=== PATIENT | female | born 2000 | race Caucasian/White ===

== ENCOUNTER 2022-06-24 12:36 | Emergency (ER) | payer BC, SELFPAY ==
[2022-06-24 13:02] VITALS: BP 146/93; PULSE 73; RESP 18; TEMP 36.4; O2SAT 100
[2022-06-24 13:07] LABS: Appearance Urine Clear (Clear); Bilirubin Urine Negative (Negative); Blood Urine 1+ (Negative); Glucose Urine UA Negative (Negative); Ketones Urine Negative (Negative); Leukocyte Esterase Ur Trace LEU/UL (Negative); Nitrate Urine Negative (Negative); Protein Urine Negative (Negative); Specific Grav Ur 1.015 (1.010-1.020); Urobilinogen Urine 0.2 mg/dL (0.2-1.0); pH Urine 6.5 (5.0-8.0)
[2022-06-24 13:11] LABS: Add Urine Microscopic? YES; Bacteria Urine Trace /hpf; Color Urine Light Yellow (Yellow); RBC Urine 0-2 /hpf (0-2); Squamous Epithelial Cell Urine Few /hpf (Few); WBC Urine 0-3 /hpf (0-3)
--- NOTE | 2022-06-24 13:36 | ED.FEMALEGU ---
HPI - Female Genitourinary General Chief complaint: Vaginal Bleeding Stated complaint: 6 weeks bloody discharge Source: patient Mode of arrival: ambulatory Limitations: no limitations History of Present Illness HPI Narrative: this is a 21-year-old female that presents after she did a home test and determined that she was presents today with some mild spotting with no crampy abdominal pain no dysuria no fever chills no flank pain no nausea or vomiting. Onset (ago): hour(s) Severity: mild Related Data Home Medications Medication Instructions Recorded Confirmed No Home Medications 06/24/22 06/24/22 Allergies Allergy/AdvReac Type Severity Reaction Status Date / Time No Known Allergies Allergy Verified 06/24/22 13:12 Review of Systems Review of Systems: All systems reviewed & are unremarkable except as noted in HPI and below PMFSH Past Medical History Medical History Patient denies medical problems Exam Const: General: healthy appearing and no acute distress Nutritional Appearance: well nourished Orientation/consciousness: patient oriented x3 Limitations: no limitations HENMT: Head: normal to inspection Face/Nose/Sinus: Normal external nose present Face and sinus: normal facial exam Eyes: Conjunctivae: conjunctivae normal Pupils: Equal, round and reactive pupils present EOM: EOMs intact bilaterally Neck: Neck: normal visual inspection Chest: Chest palpation & inspection: normal inspection of the chest Resp: Effort & Inspection: normal respiratory effort Auscultation: clear to auscultation bilaterally Cardio: Rate: regular rate Rhythm: regular rhythm GI: GI Palp: Yes Soft to palpation Auscultation: normal bowel sounds : General: Yes bladder normal to palpation Urinary Catheter: Urinary Catheter: patent and draining Back/Spine/Pelvis: Back: no CVA tenderness Skin: General skin exam: normal color Rashes: no rashes Wounds: no wounds Neuro: General: patient oriented x3 and moves all extremities Extrem: General: normal to inspection Psych: Appearance: grossly normal and well kempt Course Course Emergency Course: reviewed urinalysis which was negative, her beta HCG was 502 which puts her about 5 to 6 weeks , 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 Vital Signs Vital signs: Vital Signs Temperature 36.4 C 06/24/22 13:02 Pulse Rate 73 06/24/22 13:02 Respiratory Rate 18 06/24/22 13:02 Blood Pressure 146/93 H 06/24/22 13:02 Pulse Oximetry 100 06/24/22 13:02 Oxygen Delivery Room Air 06/24/22 13:02 Temperature 36.4 C 06/24/22 13:02 Pulse Rate 73 06/24/22 13:02 Respiratory Rate 18 06/24/22 13:02 Blood Pressure 146/93 H 06/24/22 13:02 Pulse Oximetry 100 06/24/22 13:02 Oxygen Delivery Room Air 06/24/22 13:02 MDM - Female Genitourinary Lab Data Labs: Lab Results 06/24/22 06/24/22 Range/Units 13:01 13:03 Beta HCG, Quant 502.00 H (0-6) mIU/mL Urine Color Light yellow (Yellow) Urine Appearance Clear (Clear) Urine pH 6.5 (5.0-8.0) Ur Specific [place] 1.015 (1.010-1.020) Urine Protein Negative (Negative) Urine Glucose (UA) Negative (Negative) Urine Ketones Negative (Negative) Ur Blood (Man) 1+ H (Negative) Urine Nitrate Negative (Negative) Urine Bilirubin Negative (Negative) Urine Urobilinogen 0.2 (0.2-1.0) mg/dL Leukocyte Esterase Rfl Trace (Negative) HUSSEIN/UL Urine RBC 0-2 (0-2) /hpf Urine WBC 0-3 (0-3) /hpf Ur Squamous Epith Cells Few (Few) /hpf Urine Bacteria Trace (None) /hpf Critical Care Time Critical Care Time Critical Care Time: No Discharge Plan Discharge Clinical Impression: Currently Qualifiers: Weeks
[2022-06-24 13:48] VITALS: BP 121/65; PULSE 69; RESP 20; TEMP 37; O2SAT 100
--- NOTE | 2022-06-24 16:31 | PC.NURSE ---
On 06/24/22, the student, [christy hickman ], provided care and completed [facility] documentation on this patient. I have reviewed the student's documentation and agree with the findings.
== END 2022-06-24 13:51 | disposition home or self-care (01) ==
PROVIDERS: Emergency Provider Emergency Medicine
DX: O46.91 Antepartum hemorrhage, unspecified, first trimester (principal); Z3A.01 Less than 8 weeks gestation of pregnancy
CPT/HCPCS: 36415; 81001; 84702; 99283

== ENCOUNTER 2024-03-07 11:14 | Outpatient (CLI) | payer BC, SELFPAY ==
--- NOTE | ~2024-03-07 | US_ITS ---
US pelvic complete Ordering provider: Za Jacob CNM History: . Irregular menstrual cycle, pelvic pain . Comparison: None. Technique: Transabdominal and endovaginal ultrasound of the pelvis (Doppler ultrasound interrogation techniques used as needed for this exam.) FINDINGS: CERVIX: Normal. UTERUS: Measures 8.3x 3.6x 4.2 cm in length which is within normal limits and is anteverted. No myom etrial masses. ENDOMETRIUM: Normal in thickness measuring 6 mm. (Note: the premenopausal endometrium may measure up to 16 mm when in the secretory phase.) No endometrial masses, cysts or fluid. CUL DE SAC: No free fluid. RIGHT OVARY: Normal in size measuring 3x 2.2x 3 centimeters. Normal echotexture. Doppler vascular camilo w present. Follicles are seen. LEFT OVARY: Normal in size measuring 3.5x 2.2x 3.2 centimeters. Normal echotexture. Doppler vascular flow present. ADNEXA: Normal. No mass. IMPRESSION: normal pelvic ultrasound. Reviewed, dictated and finalized at location A. IMPRESSION: normal pelvic ultrasound.
== END 2024-03-07 11:15 ==
LOC: MICIMG 11:16
PROVIDERS: PCP Advanced Practice Midwife; Visit Provider Advanced Practice Midwife
DX: R10.2 Pelvic and perineal pain (principal); N92.6 Irregular menstruation, unspecified
CPT/HCPCS: 76856

== ENCOUNTER 2024-10-17 14:32 | Outpatient (CLI) | payer BC, SELFPAY ==
--- NOTE | ~2024-10-17 | US_ITS ---
US transvaginal Ordering provider: Kanwal Aguillon, PHAM History: . Pelvic pain . Comparison: None. Technique: endovaginal ultrasound of the pelvis (Doppler ultrasound interrogation techniques used as needed for this exam.) FINDINGS: CERVIX: Normal. UTERUS: Measures 8x 4x 4.9 cm in length which is within normal limits and is anteverted. No myometri al masses. ENDOMETRIUM: Normal in thickness measuring 10 mm. No endometrial masses, cysts or fluid. CUL DE SAC: No free fluid. RIGHT OVARY: Normal in size measuring 3.9x 5.1x 4.2 cm. Normal echotexture. Doppler vascular flow pre sent. Complex cyst is seen in the right ovary measuring 3.4x 3.5x 4 cm. LEFT OVARY: Normal in size measuring 2.4x 3.4x 2.5 cm. Normal echotexture. Doppler vascular flow pres ent. ADNEXA: Normal. No mass. IMPRESSION: Right ovarian complex cyst which may be hemorrhagic. Slightly thickened endometrium. Correlation with menstrual stage is advised. Follow-up advised. Otherwise, normal pelvic ultrasound. Reviewed, dictated and finalized at location A. [employer] IMPRESSION: Right ovarian complex cyst which may be hemorrhagic. Slightly thickened endomet rium. Correlation with menstrual stage is advised. Follow-up advised. Otherwise , normal pelvic ultrasound.
== END 2024-10-17 14:33 | disposition home or self-care (01) ==
LOC: MICIMG 14:33
PROVIDERS: PCP Nurse Practitioner Women's Health; Visit Provider Nurse Practitioner Women's Health
DX: N91.2 Amenorrhea, unspecified (principal); N92.6 Irregular menstruation, unspecified; R10.2 Pelvic and perineal pain; N83.201 Unspecified ovarian cyst, right side
CPT/HCPCS: 76830

== ENCOUNTER 2024-10-29 13:50 | Emergency (ER) | payer BC, SELFPAY ==
[2024-10-29 13:52] VITALS: BP 154/76; PULSE 91; RESP 16; TEMP 36.6; O2SAT 100
--- OUTSIDE RECORDS SUMMARY | 2024-10-29 15:25 | XMS_ITS | Clinical Summary ---
Author Organization [facility] Address [address] [place] [address] Phone Care Team Providers Care Workers Compensation Legal Secretary Name Role Phone Stanley Heck MD Unavailable Juan Agarwal MD Primary Care Provider [phone] Zain Witt PAC Unavailable [phone] Juan Manuel Gongora MD Unavailable [phone] Allergies Active Allergy Reactions Criticality Noted Date Comments Wound Dressing Adhesive Other (see Comments) High Medications Acetaminophen (TYLENOL EXTRA STRENGTH PO) Take 1,000 mg by mouth every 6 hours as needed. Active traMADol (ULTRAM) 50 MG TabletIndicatio ns:Chronic joint pain Take 1 Tablet by mouth 2 times daily as needed for Mild or more severe pain. 60 Tablet 3 Active sulfaSALAzine (AZULFIDINE) 500 MG Tablet Delayed Response TAKE 1 TO 2 TABLETS BY MOUTH TWICE DAILY 3 Active omeprazole (PriLOSEC) 40 MG CAPSULE DELAYED RELEASE 3 Active albuterol 108 (90 Base) MCG/ACT Aerosol Solution inhale 2 puffs by mouth every 4 hours as needed for shortness of breath Active cyclobenzaprine (FLEXERIL) 5 MG Tablet 4 Active Multivitamin-Mi nerals Tablet Take 1 Tablet by mouth daily. Active Humira, 2 Pen, 40 MG/0.4ML Auto-injector Kit 4 Active ondansetron (ZOFRAN-ODT) 4 MG TABLET DISPERSIBLE DISSOLVE 1 TABLET ON THE TONGUE EVERY 8 HOURS NEEDED FOR NAUSEA 10 Tablet 4 Active fluticasone (FLONASE) 50 MCG/ACT SuspensionIndic ations:Allergic Rhinitis,Nasal Congestion 1-2 Sprays by Nasal route daily. Use in each nostril as directed. Indications: Allergic Rhinitis, Stuffy Nose 1 mL 2 4 Active topiramate (TOPAMAX) 25 MG Tablet Take 1 Tablet by mouth 2 times daily. 180 Tablet 3 5 Active SUMAtriptan (IMITREX) 50 MG Tablet Take 1 Tablet by mouth once as needed for Migraine. Use as directed. May repeat dose in 2 hours if headache recurs. 9 Tablet 3 5 Active escitalopram (LEXAPRO) 10 MG TabletIndicatio ns:Depression, unspecified depression type Take 1 Tablet by mouth daily. 30 Tablet 1 5 Active Cyanocobalamin (B-12) 500 MCG TabletIndicatio ns:B12 deficiency Take 1 Tablet by mouth daily for 90 days. 90 Tablet 3 5 01/26/20 25 Active ergocalciferol (VITAMIN D) 48098 UNIT CapsuleIndicati ons:Vitamin D deficiency Take 1 Capsule by mouth once a week for 12 doses. 12 Capsule 5 01/14/20 25 Active traZODone (DESYREL) 50 MG Tablet 5 10/28/19 25 Discontinu ed(Therapy completed) Active Problems Problem Noted Date Diagnosed Date B12 deficiency 10/27/2024 Depression 10/27/2024 Insomnia 10/27/2024 Left arm pain 07/28/2024 Left elbow pain 07/28/2024 Ankylosing spondylitis of thoracic region 2023 Vitamin D deficiency 04/16/2023 Chronic joint pain 03/19/2023 History of hypothyroidism 03/19/2023 Tick bite of left lower leg 03/19/2023 Attention deficit hyperactiv ity disorder (ADHD), combined type 07/05/2016 Generalized anxiety disorder 07/05/2016 Oppositional defiant disorder 07/05/2016 Major depressive disorder, r ecurrent severe without psychotic features 06/12/2016 Encounters Date Type Department Care Team Description 10/27/2024 10:30 AM CDT Lab [facility] [address] [address] [place] [address] LabMaris Lab/Ancillary Discharge Disposition: Discharged to home or Selfcare 10/27/2024 10:00 AM CDT Office Visit [facility] [address] [facility] [place] [address] Juan Agarwal MD Depression, unspecified depression type (Primary Dx); Vitamin D deficiency; B12 deficiency; Insomnia, unspecified type Discharge Disposition: Discharged to home or Selfcare 10/27/2024 Travel 10/15/2024 Travel 10/13/2024 Transcribe Orders [facility] Services [address] [place] [address] Virgen Gusman MD Irregular menstrual cycle (Primary Dx) 10/06/2024 Travel 09/27/2024 9:41 AM SOLAR ENERGY ENGINEER - 09/27/2024 11:59 PM SOLAR ENERGY ENGINEER Hospital Encounter [facility] [address] [facility] [place] [address] Elvira Charles, PHAM, INVESTMENT FUND MANAGER Discharge Disposition: Discharged to home or Selfcare 09/27/2024 Travel 09/24/2024 1:30 PM SOLAR ENERGY ENGINEER Office Visit [facility] [address] [place] [address] Elvira Charles APRN, CRISTHIAN Neck pain (Primary Dx); Frequent headaches Discharge Disposition: Discharged to home or Selfcare 09/23/2024 10:20 AM SOLAR ENERGY ENGINEER Clinical Support [facility] [address] [place] [address] [facility] Maris, Primary Nurse Clinic Sore throat (Primary Dx) Discharge Disposition: Discharged to home or Selfcare 09/22/2024 Travel 09/19/2024 Results Follow-Up [facility] [address] [place] [address] Melvin Elvira Triston, PHAM, INVESTMENT FUND MANAGER 09/16/2024 9:00 AM SOLAR ENERGY ENGINEER [facility] [place] [facility] [place] [address] Melvin Elvira Triston, FREELANCE INTERPRETER/TRANSLATOR, INVESTMENT FUND MANAGER Juan Manuel Gongora MD Chronic migraine w/o aura w/o status migrainosus, not intractable (Primary Dx); Ankylosing spondylitis of thoracolumbar region (HCC) Discharge Disposition: Discharged to home or Selfcare 09/16/2024 8:20 AM SOLAR ENERGY ENGINEER Lab [facility] [address] [address] Lab Maris Lab/Ancillary Frequent headaches Discharge Disposition: Discharged to home or Selfcare 09/15/2024 11:45 AM SOLAR ENERGY ENGINEER - 09/15/2024 11:59 PM SOLAR ENERGY ENGINEER [facility] [address] [place] [address] Melvin, November Triston, FREELANCE INTERPRETER/TRANSLATOR, INVESTMENT FUND MANAGER Discharge Disposition: Discharged to home or Selfcare 09/15/2024 Travel 09/10/2024 2:15 PM SOLAR ENERGY ENGINEER Office Visit [facility] [place] [address] Elvira Charles, FREELANCE INTERPRETER/TRANSLATOR, INVESTMENT FUND MANAGER Frequent headaches (Primary Dx) Discharge Disposition: Discharged to home or Selfcare 09/10/2024 Travel 09/03/2024 10:40 AM SOLAR ENERGY ENGINEER Immunization [facility] [place] [address] [place] [address] [facility] Maris, [facility] Nurse Clinic Chronic joint pain (Primary Dx) Discharge Disposition: Discharged to home or Selfcare 09/03/2024 Travel 09/03/2024 Telephone [facility] [place] [address] [place] [address] Juan Agarwal MD 08/07/2024 Results Follow-Up [facility] [place] [address] [place] [address] Juan Agarwal MD 08/05/2024 9:30 AM SOLAR ENERGY ENGINEER Office Visit [facility] [place] [address] [place] [address] Zain Witt, PAC Left arm pain; Left elbow pain Discharge Disposition: Discharged to home or Selfcare 08/05/2024 Travel from Last 3 Months Immunizations Immunization Administration Dates Next Due Adenovirus Vaccine 02/18/2020 Covid-19, Mrna, Lnp-s, Pf, 3 0 Mcg/0.3 Ml Dose ([email or web address]) 06/25/2021 DTAP VACCINE 09/11/2007, 4,05/22/2003,03/27,01/23/2003 HEP B/HIB Combined Vaccine 05/22/2003 Hepatitis B Vaccine 06/26/2021,02/24/2021 Hepatitis B Vaccine, Pediatric/adolescent 02/18/2020,05/22/2003,2002,11/19 Hepatitis B-CpG 02/24/2021 Hib (HbOC) 05/27/2004,03/27/2003,01/23/2003 Hib Vaccine,unspecified Formulation 05/22/2003,0 03/27/2003,01/23/2003 Human Papillomavirus (HPV) 9 -valent Vaccine 12/12/2017,08/14/2017 Human Papillomavirus Vaccine (HPV), quadrivalent 03/13/2014 Inactivated Polio Vaccine 02/18/2020,,05/27/2004,03/27,01/23/2003 Influenza Vaccine 05/13/2009 Influenza Vaccine less than 3 yrs 05/13/2024 Influenza Vaccine, Quadrivalent, PF 04/30/2023,1 09/01/2019,07/02/2020 MMR Vaccine 09/11/2007,12/04/2003 Meningococcal MCV4O 05/03/2020,03/07/2017 Meningococcal Vaccine 03/13/2014 Pneumococcal Vaccine Peds - 7 Valent ,05/22/2003,03/27/2003,01/23 Pneumococcal conjugate PCV20 , polysaccharide [id number] conjugate, adjuvant, PF 07/09/2024 TDAP Vaccine 03/07/2017,03/13/2014 Varicella Vaccine Live 09/11/2007,12/04/2003 Family History Medical History Relation Name Comments Hypertension Father Yenifer Cancer Maternal Grandfather Anthony Kidney Carcinoma Congestive Heart Failure Maternal Grandfather Anthony Stroke Paternal Aunt Maddi Before the age of 50 Cancer Paternal Grandfather Gabriel Skin Ca ncer Diabetes Paternal Grandfather Gabriel Migraines Paternal Grandmother Phoenix Relation Name Status Comments Brother Alive Father Yenifer Alive Maternal Grandfather Anthony Mother Alive Paternal Aunt Maddi Paternal Grandfather Gabriel Paternal Grandmother Phoenix Social History Tobacco Use Types Packs/Day Years Used Date Smoking Tobacco: Never Smokeless Tobacco: Never Tobacco Cessation:Counseling Given: Yes Alcohol Use Standard Drinks/Week Comments No 0 (1 standard drink = 0.6 oz pur e alcohol) [facility] Healthcare ITities Answer Date Recorded In the past 12 months has [employer], oil, or water [employer] threatened to shut off services in your home? Patient declined 09/10/2024 Social Connection and Isolation Panel [NHANES] A nswer Date Recorded In a typical week, how many times do you talk on the phone with family, friends, or neighbors? Patient declined 09/10/2024 How often do you get togethe r with friends or relatives? Patient declined 09/10/2024 How often do you attend zoroastrianism or christianity serv ices? Patient declined 09/10/2024 Do you belong to any clubs o r organizations such as zoroastrianism groups, unions, fraternal or athletic groups, or school groups? Patient declined 09/10/2024 How often do you attend meet ings of the clubs or organizations you belong to? Patient declined 09/10/2024 Are you , , di vorced, , never , or living with a partner? Never 09/10/2024 AUDIT-C Answer Date Recorded Q1: How often do you have a drink containing alc ohol? Patient declined 09/10/2024 Q2: How many drinks containi ng alcohol do you have on a typical day when you are drinking? Patient declined 09/10/2024 Q3: How often do you have si x or more drinks on one occasion? Patient declined 09/10/2024 Overall Financial Resource Strain (CARDIA) Answe r Date Recorded How hard is it for you to pa y for the very basics like food, housing, medical care, and heating? Patient declined 09/10/2024 PHQ-2 Answer Date Recorded Total Score - Questions 1-9 16 10/11 [facility] - Occupational Stress Questionnaire Answer Date Recorded Do you feel stress - tense, restless, nervous, or anxious, or unable to sleep at night because your mind is troubled all the time - these days? Patient declined 09/10/2024 Exercise Vital Sign Answer Date Recorde d On average, how many days pe r week do you engage in moderate to strenuous exercise (like a brisk walk)? Patient declined On average, how many minutes do you engage in exercise at this level? Patient declined 09/10/2024 Hunger Vital Sign Answer Date Recorded Within the past 12 months, y ou worried that your food would run out before you got the money to buy more. Patient declined Within the past 12 months, t he food you bought just didn't last and you didn't have money to get more. Patient declined PRAPARE - Transportation Answer Date Re corded In the past 12 months, has l ack of transportation kept you from medical appointments or from getting medications? Patient declined 09/10/2024 In the past 12 months, has l ack of transportation kept you from meetings, work, or from getting things needed for daily living? Patient declined 09/10/2024 Housing Stability Vital Sign Answer Cisco e Recorded In the last 12 months, was t here a time when you were not able to pay the mortgage or rent on time? Patient declined 09/10/19 25 In the past 12 months, how m any times have you moved where you were living? 0 09/10/2024 At any time in the past 12 m onths, were you homeless or living in a snf (including now)? Patient declined 09/10/2024 Education Answer Date Recorded What is the highest level of school you have completed or the highest degree you have received? 12th grade 01/16/2023 Sexually Active Control Partners Comments Yes Male Condom Male Comments No Sex and Gender Information Value Date Recorded Sex Assigned at Not on file Legal Sex Female 12:01 AM CDT Gender Identity Not on file Sexual Orientation Not on file Last Filed Vital Signs Vital Sign Reading Time Taken Comments Blood Pressure 120/74 10/27/2024 8:56 AM CDT Pulse 91 10/27/2024 8:56 AM CDT Temperature 36.7 C (98 F) 10/27/2024 8:56 AM CDT Respiratory Rate 17 09/24/2024 8:15 AM SOLAR ENERGY ENGINEER Oxygen Saturation 99% 10/27/2024 8:56 AM CDT Inhaled Oxygen Concentration - - Weight 107 kg (236 lb) 10/27/2024 8:56 AM CDT Height 185.4 cm (6' 1 ) 10/27/2024 8:56 AM CDT Body Mass Index 31.14 10/27/2024 8:56 AM CDT Plan of Treatment Upcoming Encounters Date Type Department Care Team (Late st Contact Info) Description 12/18/2024 8:00 AM CDT Office Visit [facility] [place] [address] [place] [address] Ita Botello, FREELANCE INTERPRETER/TRANSLATOR, ASSET PROTECTION LEAD [address] [place] [address] Health Maintenance Due Date Last Done Comments Meningococcal B Immunization (1 of 2 - Standard) 2018 SARS-COV-2 Immunization (3 - Pfizer risk series) 09/20/2021 08/23/2021, 06/25/2021 Pap Smear 11/20/2023 DTaP/Tdap/Td Immunization (8 - Td or Tdap) 03/07/2027 03/07/2017, 03/13/2014, 09/11/2007, Additional history exists Respiratory Syncytial Virus (RSV) Immunization (Adult) (1 - 1-dose 75+ series) 2077 Measles Mumps Rubella (MMR) Immunization Discontinued 09/11/2007, 12/04/2003 Varicella Immunization Discontinued 09/11/2007, 2003 Human Papillomavirus (HPV) Immunization Completed 12/12/2017, 08/14/2017, 03/13/2014 Polio (IPV) Immunization Discontinued 020, 09/11/2007, 05/27/2004, Additional history exists Meningococcal Immunization (ACWY) Completed 05/03/2020, 03/07/2017, 03/13/2014 Hepatitis B Immunization Completed 021, 02/24/2021, 02/24/2021, Additional history exists Hepatitis C Virus (HCV) Screening Completed 06/11/2023 Influenza Immunization Completed , 04/30/2023, 07/02/2020, Additional history exists Pneumococcal Immunization Combined Aged Out 07/09/2024, 05/27/2004, 05/22/2003, Additional history exists No longer eligible based on patient's age to complete this topic Rotavirus Immunization Aged Out No lo nger eligible based on patient's age to complete this topic Procedures Procedure Name Priority Date/Time Associated Diagnosis Comments INSULIN LEVEL Routine 10/27/2024 11:48 AM CDT Irregular menstrual cycle TESTOSTERONE, TOTAL AND FREE, DEWY ROSE TGRP Routine 10/06/2024 12:08 PM SOLAR ENERGY ENGINEER Absence of menstruation Irregular menstrual cycle PROGESTERONE Routine 10/06/2024 12:08 PM SOLAR ENERGY ENGINEER Absence of menstruation Irregular menstrual cycle FREE AND TOTAL TESTOSTERONE Routine 09/14 12:08 PM SOLAR ENERGY ENGINEER Absence of menstruation Irregular menstrual cycle DEHYDROEPIANDROSTERONE SULFATE (DHEA-S) Routine 10/06/2024 12:08 PM SOLAR ENERGY ENGINEER Absence of menstruation Irregular menstrual cycle PROGESTERONE Routine 10/06/2024 12:08 PM SOLAR ENERGY ENGINEER Absence of menstruation Irregular menstrual cycle PROLACTIN Routine 10/06/2024 12:08 PM SOLAR ENERGY ENGINEER Absence of menstruation Irregular menstrual cycle INSULIN LEVEL Routine 10/06/2024 12:08 PM SOLAR ENERGY ENGINEER Absence of menstruation Irregular menstrual cycle HEMOGLOBIN A1C W/ ESTIMATED GLUCOSE Routine 10/06/2024 12:08 PM SOLAR ENERGY ENGINEER Absence of menstruation Irregular menstrual cycle HCG BETA SUBUNIT SERUM QUANT Routine 12:08 PM SOLAR ENERGY ENGINEER Absence of menstruation Irregular menstrual cycle CT HEAD OR BRAIN WO CONTRAST Routine 9:46 AM SOLAR ENERGY ENGINEER Frequent headaches VITAMIN B12 Routine 09/16/2024 7:44 AM SOLAR ENERGY ENGINEER Frequent headaches THYROID STIMULATING HORMONE (TSH) Routine 09/16/2024 7:44 AM SOLAR ENERGY ENGINEER Frequent headaches XR CERVICAL SPINE MINIMUM 4 VIEWS (4 OR 5V) Routine 09/15/2024 12:06 PM SOLAR ENERGY ENGINEER Frequent headaches HEPATITIS C ANTIBODY Routine 06/11/2023 4:42 PM CDT Concern about sexually transmitted disease in female without diagnosis from Last 3 Months or Most Recently Relevant to Health Maintenance Results * INSULIN LEVEL (10/27/2024 11:48 AM CDT) Only the most recent of2 resultswithin the time period is included. INSULIN 4.6 3.0 - 28.0 uU/mL 10/28/2024 2:21 AM CDT [facility] Blood Venipuncture / Unknown 10/27/2024 11:48 AM CDT 10/27/2024 11:49 AM CDT us Virgen Gusman MD CHEMISTRY ORDERABLES F inal Result [facility] [address] [place] [address], * HEMOGLOBIN A1C W/ ESTIMATED GLUCOSE (10/06/2024 12:08 PM SOLAR ENERGY ENGINEER) HGB-A1C 5.1 4.0 - 6.0 % 10/06/2024 1:06 PM SOLAR ENERGY ENGINEER [facility] Est Average Glucose 99.7 mg/dL 10/06/2024 1:06 PM SOLAR ENERGY ENGINEER [facility] Blood Venipuncture / Unknown 10/06/2024 12:08 PM SOLAR ENERGY ENGINEER 10/06/2024 12:27 PM SOLAR ENERGY ENGINEER Narrative [facility] - 10/06/2024 1:06 PM SOLAR ENERGY ENGINEER HEMOGLOBIN A1C: DIABETIC PATIENTS: WELL-CONTROLLED: 6.2 - 7.0 INTERMEDIATE WELL-CONTROLLED: 7.0 - 9.0 POORLY-CONTROLLED: >9.0 Specimens containing greater than 5% of Hemoglobin F may result in lower than expected % HbA1C results. Kanwalaldo Aguillon APRN, INVESTMENT FUND MANAGER CHEMISTRY ORDERABLES Fi nal Result Performing Organization Address City/[facility]/ZIP Co de Phone Number [facility] [address] [place] [address] * PROGESTERONE (10/06/2024 12:08 PM SOLAR ENERGY ENGINEER) PROGESTERONE 0.7 ng/mL 10/06/2024 1:13 PM SOLAR ENERGY ENGINEER [facility] Blood Venipuncture / Unknown 10/06/2024 12:08 PM SOLAR ENERGY ENGINEER 10/06/2024 12:27 PM SOLAR ENERGY ENGINEER Narrative [facility] - 10/06/2024 1:13 PM SOLAR ENERGY ENGINEER FEMALE NORMAL RANGE <0.5 NG/ML FOLLICULAR 1.2-15.9 NG/ML LUTEAL <0.5 NG/ML POSTMENOPAUSAL MALE NORMAL RANGE <0.5 NG/ML Kanwalaldo Aguillon FREELANCE INTERPRETER/TRANSLATOR, INVESTMENT FUND MANAGER CHEMISTRY ORDERABLES Fi nal Result Performing Organization Address City/[facility]/ZIP Co de Phone Number [facility] [address] [place] [address] * TESTOSTERONE, TOTAL AND FREE, BURGOS TGRP (10/06/2024 12:08 PM SOLAR ENERGY ENGINEER) TESTOSTERONE, FREE 0.73 <0.13 - 1.08 ng/dL 10/13/2024 3:54 PM SOLAR ENERGY ENGINEER [facility] Comment: ADDITIONAL INFORMATION This test was developed and its performance characteristics determined by [facility] in a manner consistent with CLIA requirements. This test has not been cleared or approved by the U.S. Food and Drug Administration. TESTOSTERONE, TOTAL 30 8 - 60 ng/dL 10/13/2024 3:54 PM SOLAR ENERGY ENGINEER [facility] Comment: ADDITIONAL INFORMATION Testing performed by Liquid Chromatography-Tandem Mass Spectrometry (LC-MS/MS). This test was developed and its performance characteristics determined by [facility] in a manner consistent with CLIA requirements. This test has not been cleared or approved by the U.S. Food and Drug Administration. Test Performed by: [address] [address] Equine Manager: Ashley Butler Ph.D.; CLIA# [id number] Blood Venipuncture / Unknown 10/06/2024 12:08 PM SOLAR ENERGY ENGINEER 10/06/2024 12:26 PM SOLAR ENERGY ENGINEER Kanwal Aguillon APRN, CNP LAB SEND OUTS Final R esult Performing Organization Address City/[facility]/ZIP Co de Phone Number [facility] US * PROLACTIN (10/06/2024 12:08 PM SOLAR ENERGY ENGINEER) [facility] Prolactin 19.4 1.2 - 29.9 ng/mL 10/06/2024 10:44 PM SOLAR ENERGY ENGINEER [facility] Blood Venipuncture / Unknown 10/06/2024 12:08 PM SOLAR ENERGY ENGINEER 10/06/2024 12:26 PM SOLAR ENERGY ENGINEER Kanwal Aguillon APRN, CNP CHEMISTRY ORDERABLES Fi nal Result Performing Organization Address [facility] Co de Phone Number [facility] [address] [place] [address], [place] * HCG BETA SUBUNIT SERUM QUANT (10/06/2024 12:08 PM SOLAR ENERGY ENGINEER) Pathologist [facility] HCG BETA SUBUNIT, QUANT <2.42 0.00 - 5.00 mIU/mL 10/06/2024 1:13 PM SOLAR ENERGY ENGINEER [facility] Blood Venipuncture / Unknown 10/06/2024 12:08 PM SOLAR ENERGY ENGINEER 10/06/2024 12:27 PM SOLAR ENERGY ENGINEER Narrative [facility] - 10/06/2024 1:13 PM SOLAR ENERGY ENGINEER HCG levels should be interpreted with consideration given to the patient's clinical condition. No currently available hCG test is approved by the FDA for use as a tumor marker. hCG results <5 mIU/mL are considered negative. Weeks post LMP hCG range (mIU/mL) 1 - 10 202 - 231,000 11 - 15 22,536 - 234,990 16 - 22 8,007 - 50,064 23 - 40 1,600 - 49,413 The concentration of hCG in maternal serum rises rapidly in early , hCG levels less than 25 mIU/mL do not exclude . A further sample should be tested after 48 hours if is suspected. Heterophilic antibodies present in the serum of some patients may cause a false positive result in the assay. Before making a diagnosis of malignancy based on elevated hCG, confirm results with a urine hCG. Kanwal Aguillon APRN, INVESTMENT FUND MANAGER CHEMISTRY ORDERABLES Fi nal Result [facility] [address] [place] [address] * DEHYDROEPIANDROSTERONE SULFATE (DHEA-S) (10/06/2024 12:08 PM SOLAR ENERGY ENGINEER) DHEA Sulfate 176 30 - 512 ug/dL 10/06/2024 10:52 PM SOLAR ENERGY ENGINEER [facility] Blood Venipuncture / Unknown 10/06/2024 12:08 PM SOLAR ENERGY ENGINEER 10/06/2024 12:27 PM SOLAR ENERGY ENGINEER Kanwalaldo Aguillon FREELANCE INTERPRETER/TRANSLATOR, INVESTMENT FUND MANAGER CHEMISTRY ORDERABLES Fi nal Result [facility] [address] [place] [place] [address], [place] * CT HEAD OR BRAIN WO CONTRAST (09/27/2024 9:46 AM SOLAR ENERGY ENGINEER) Anatomical Region Laterality Modality Head N/A Computed Tomogra phy 09/29/2024 10:3 6 AM SOLAR ENERGY ENGINEER Impressions 09/29/2024 10:39 AM SOLAR ENERGY ENGINEER IMPRESSION: 1. No acute intracranial process. 2. Paranasal sinus disease as above. Narrative 09/29/2024 10:39 AM SOLAR ENERGY ENGINEER EXAM DESCRIPTION: CT HEAD WITHOUT CONTRAST REASON FOR STUDY: Nontraumatic headaches and dizziness for 3.5 months. No provided focal neurologic deficits. No provided history of inciting and/or aggravating events. No provided past medical or surgical history. TECHNIQUE: Axial images acquired through the brain without intravenous contrast. Images stored on PACS. Automated exposure control was used as a dose optimization technique for this examination. COMPARISON: Relevant portions of cervical spine radiograph 09/15/2024. FINDINGS: BRAIN: No acute intra-axial hemorrhage. No edema, mass effect, midline shift, or herniation. Normal white matter. No evidence of acute territorial ischemia/infarct. EXTRA-AXIAL SPACES: No extra-axial fluid collection. No unenhanced CT evidence of extra-axial mass. CALVARIUM: No acute calvarial fracture. SINUSES/MASTOIDS: Multicompartmental variable mucosal thickening and opacification about the visualized paranasal sinuses. Mastoid air cells well-developed and well aerated. ORBITS: No acute abnormality. Ocular lenses and globes normal in conformation and position. OTHER: No other significant abnormality. THIS IS AN ELECTRONICALLY VERIFIED FINAL REPORT 09/29/2024 10:36 AM - Electronically signed by Kieran Krishnan M.D. ÁNGEL: ÁNGEL Report ID: [id number] Reading Location: [id number] Procedure Note Kieran Krishnan MD - 09/29/2024 EXAM DESCRIPTION: CT HEAD WITHOUT CONTRAST REASON FOR STUDY: Nontraumatic headaches and dizziness for 3.5 months. No provided focal neurologic deficits. No provided history of inciting and/or aggravating events. No provided past medical or surgical history. TECHNIQUE: Axial images acquired through the brain without intravenous contrast. Images stored on PACS. Automated exposure control was used as a dose optimization technique for this examination. COMPARISON: Relevant portions of cervical spine radiograph 09/15/2024. FINDINGS: BRAIN: No acute intra-axial hemorrhage. No edema, mass effect, midline shift, or herniation. Normal white matter. No evidence of acute territorial ischemia/infarct. EXTRA-AXIAL SPACES: No extra-axial fluid collection. No unenhanced CT evidence of extra-axial mass. CALVARIUM: No acute calvarial fracture. SINUSES/MASTOIDS: Multicompartmental variable mucosal thickening and opacification about the visualized paranasal sinuses. Mastoid air cells well-developed and well aerated. ORBITS: No acute abnormality. Ocular lenses and globes normal in conformation and position. OTHER: No other significant abnormality. THIS IS AN ELECTRONICALLY VERIFIED FINAL REPORT 09/29/2024 10:36 AM - Electronically signed by Kieran Krishnan M.D. ÁNGEL: ÁNGEL Report ID: [id number] Reading Location: [id number] IMPRESSION: 1. No acute intracranial process. 2. Paranasal sinus disease as above. November N Melvin NATH CNP IMG CT ORDERABLES Final R esult * VITAMIN B12 (09/16/2024 7:44 AM SOLAR ENERGY ENGINEER) VITAMIN B12 399 213 - 816 pg/mL 09/16/2024 1:18 PM SOLAR ENERGY ENGINEER [facility] Blood Venipuncture / Unknown 09/16/2024 7:44 AM SOLAR ENERGY ENGINEER 09/16/2024 7:44 AM SOLAR ENERGY ENGINEER November Melvin NATH CNP CHEMISTRY ORDERABLES Bailee l Result [facility] [address] [place] [address] * THYROID STIMULATING HORMONE (TSH) (09/16/2024 7:44 AM SOLAR ENERGY ENGINEER) TSH 1.406 0.300 - 5.000 mIU/L 09/16/2024 1:08 PM SOLAR ENERGY ENGINEER [facility] Blood Venipuncture / Unknown 09/16/2024 7:44 AM SOLAR ENERGY ENGINEER 09/16/2024 7:44 AM SOLAR ENERGY ENGINEER us Elvira N Oehl FREELANCE INTERPRETER/TRANSLATOR, INVESTMENT FUND MANAGER CHEMISTRY ORDERABLES Bailee l Result [facility] [address] [place] [address] * XR CERVICAL SPINE MINIMUM 4 VIEWS (4 OR 5V) (09/15/2024 12:06 PM SOLAR ENERGY ENGINEER) Anatomical Region Laterality Modality Spine, C-spine N/A Digital Radiogra phy 09/15/2024 4:46 PM SOLAR ENERGY ENGINEER Impressions 09/15/2024 4:49 PM SOLAR ENERGY ENGINEER IMPRESSION: Reversal of the normal cervical lordosis. No significant osseous endplate degenerative changes. Narrative 09/15/2024 4:49 PM SOLAR ENERGY ENGINEER EXAM DESCRIPTION: XR CERVICAL SPINE MINIMUM 4 VIEWS (4 OR 5V) REASON FOR STUDY: pt c/o freq posterior headaches that radiates to bilateral side of head x 3 months. pt states she has some pain in neck. no injury or hx of surgery TECHNIQUE: Frontal, lateral, bilateral oblique and odontoid radiographic view(s) of the cervical spine. COMPARISON: None available. FINDINGS: Reversal of the normal cervical lordosis. Cervical vertebral body heights are maintained. Relative preservation of the intervertebral disc heights. There is no significant osseous neural foraminal narrowing. The tip of the odontoid is obscured by overlapping calvarium. No significant prevertebral soft tissue swelling. THIS IS AN ELECTRONICALLY VERIFIED FINAL REPORT 09/15/2024 4:46 PM - Electronically signed by Michael Capone D.O. AP: AP Report ID: [id number] Reading Location: [id number] Procedure Note CaponeMichael mcdaniels DO - 09/15/2024 EXAM DESCRIPTION: XR CERVICAL SPINE MINIMUM 4 VIEWS (4 OR 5V) REASON FOR STUDY: pt c/o freq posterior headaches that radiates to bilateral side of head x 3 months. pt states she has some pain in neck. no injury or hx of surgery TECHNIQUE: Frontal, lateral, bilateral oblique and odontoid radiographic view(s) of the cervical spine. COMPARISON: None available. FINDINGS: Reversal of the normal cervical lordosis. Cervical vertebral body heights are maintained. Relative preservation of the intervertebral disc heights. There is no significant osseous neural foraminal narrowing. The tip of the odontoid is obscured by overlapping calvarium. No significant prevertebral soft tissue swelling. THIS IS AN ELECTRONICALLY VERIFIED FINAL REPORT 09/15/2024 4:46 PM - Electronically signed by Michael Capone D.O. AP: AP Report ID: [id number] Reading Location: [place] [address] IMPRESSION: Reversal of the normal cervical lordosis. No significant osseous endplate degenerative changes. November N Еленаhl FREELANCE INTERPRETER/TRANSLATOR, INVESTMENT FUND MANAGER IMG DIAGNOSTIC ORDERABLES Final Result * HEPATITIS C ANTIBODY (06/11/2023 4:42 PM CDT) hepatitis C antibody 0.10 <1 S/[facility] [id number] B 06/12/2023 3:45 PM CDT [facility] Comment: Signal/Cutoff ratio < 0.79 is Nondetected Signal/Cutoff ratio 0.80-0.99 is Grayzone Signal/Cutoff ratio > 0.99 is Detected Supplemental assays are recommended if signal/cutoff ratio is >/=1.00. Signal/cutoff ratio result >/= 5.00 is 97% predictive of positivity for recombinant immunoblot assay (RIBA) and will be reported to the [place] Department of Public Health as required. Blood Venipuncture / Unknown 06/11/2023 4:42 PM CDT 06/11/2023 4:42 PM CDT Luba Brito FREELANCE INTERPRETER/TRANSLATOR, INVESTMENT FUND MANAGER CHEMISTRY ORDERABLES Fin al Result [facility] [address] [place] [address], [place] from Last 3 Months or Most Recently Relevant to Health Maintenance Insurance [facility] Care Teams Workers Compensation Legal Secretary Relationship Specialty Start Date End Date Juan Agarwal MD #2 [facility] [address] [place] [address] PCP - General Family Medicine 05/17/23 Stanley Heck MD #2 [facility] [address] [place] [address] Consulting Physician Colon and Rectal Surgery 01/19/23 Zain Witt, PAC [address] [place] [address] Physician Mailroom Supervisor Physician Mailroom Supervisor 07/31/24 Juan Manuel Gongora MD [address] [place] [id number] Consulting Physician Neurology 09/16/24
--- OUTSIDE RECORDS SUMMARY | 2024-10-29 15:25 | XMS_ITS | Encounter Summary ---
Author Organization [facility] Address [address] [place] [address] Phone Care Team Providers Care Air Traffic Control Supervisor Name Role Phone Cindy Pittman PAC Unavailable Stanley Heck MD Unavailable Juan Agarwal MD Primary Care Provider [phone] Zain Witt PAC Unavailable [phone] Juan Manuel Gongora MD Unavailable Encounter Details Date Type Department Care Team (Late st Contact Info) Description 09/03/2024 Telephone [facility] [address] [place] [address] Juan Agarwal MD #[address] [address] Social History Tobacco Use Types Packs/Day Years Used Date Smoking Tobacco: Never Smokeless Tobacco: Never Alcohol Use Standard Drinks/Week Comments No 0 (1 standard drink = 0.6 oz pur e alcohol) [facility] Utilities Answer Date Recorded In the past 12 months has e electric, gas, oil, or water company threatened to shut off services in your home? No 07/14/2024 Social Connection and Isolat ion Panel [NHANES] Answer Date Recorded In a typical week, how many times do you talk on the phone with family, friends, or neighbors? More than three times a week 07/14/2024 How often do you get togethe r with friends or relatives? Twice a week 07/14/2024 How often do you attend chur or rastafarian services? More than 4 times per year 07/14/2024 Do you belong to any clubs o r organizations such as temple groups, unions, fraternal or athletic groups, or school groups? No 07/14/2024 How often do you attend meet ings of the clubs or organizations you belong to? Never 07/14/2024 Are you , , di vorced, , never , or living with a partner? Never 07/14/2024 AUDIT-C Answer Date Recorded Q1: How often do you have a drink containing alc ohol? Monthly or less 07/14/2024 Q2: How many drinks containi ng alcohol do you have on a typical day when you are drinking? 7 to 9 07/14/2024 Q3: How often do you have si x or more drinks on one occasion? Monthly 07/14/2024 Overall Financial Resource Strain (CARDIA) Answe r Date Recorded How hard is it for you to pa y for the very basics like food, housing, medical care, and heating? Not hard at all 07/14/2024 PHQ-2 Answer Date Recorded Total Score - Questions 1-9 0 09/2023 [facility] - Occupational Stress Questionnaire Answer Date Recorded Do you feel stress - tense, restless, nervous, or anxious, or unable to sleep at night because your mind is troubled all the time - these days? Not at all 07/14/2024 Exercise Vital Sign Answer Date Recorde d On average, how many days pe r week do you engage in moderate to strenuous exercise (like a brisk walk)? 3 days 07/14/2024 On average, how many minutes do you engage in exercise at this level? 40 min 07/14/2024 Hunger Vital Sign Answer Date Recorded Within the past 12 months, y ou worried that your food would run out before you got the money to buy more. Never true 07/14/20 24 Within the past 12 months, t he food you bought just didn't last and you didn't have money to get more. Never true 07/14/2024 PRAPARE - Transportation Answer Date Re corded In the past 12 months, has l ack of transportation kept you from medical appointments or from getting medications? No 09/2023 In the past 12 months, has l ack of transportation kept you from meetings, work, or from getting things needed for daily living? No 07/14/2024 Housing Stability Vital Sign Answer Cisco e Recorded In the last 12 months, was t here a time when you were not able to pay the mortgage or rent on time? No 07/14/2024 In the past 12 months, how m any times have you moved where you were living? 0 07/14/2024 [facility] were you [facility] or living in a group home (including now)? No 07/14/2024 Education Answer Date Recorded What is the [...] on file Sexual Orientation Not on file documented as of this encounter Miscellaneous Notes * Telephone Encounter - Shannan Valenzuela MA - 09/03/2024 9:18 AM MUSIC COPYIST Pt aware C COPYIST * Telephone Encounter - Juan Agarwal MD - 09/03/2024 9:06 AM MUSIC COPYIST Yes, that's fine, let's do a Toradol shot, but she would have to be seen in nurse clinic for this. Thanks! C COPYIST * Telephone Encounter - Mindi Serrano - 09/03/2024 8:29 AM CST Pt having increased back pain and is on a steroid pack from her form builder. She isn't having any relief. Can we give her a toradol injection? Depo injection? Please advise and route message back to AUDREY CampbellSweta C COPYIST documented in this encounter Plan of Treatment Upcoming Encounters Date Type Department Care Team (Late st Contact Info) Description 12/18/2024 8:00 AM CDT Office Visit [facility] [address] [place] [address] Ita Botello, SCRAP PILER, CDL B DRIVER [address] [place] [address] documented as of this encounter Visit Diagnoses Not on filedocumented in this encounter Additional Health Concerns Assessment Noted Time PHQ-9 Depression Total Score: 0 07/14/20 24 4:39 PM MUSIC COPYIST documented as of this encounter Care Teams Air Traffic Control Supervisor Relationship Specialty Start Date End Date Juan Agarwal MD #[address] [address] PCP - General Family Medicine 05/17/23 Cindy Pittman PAC [address] [place] [address] Physician Consumer Insight Analyst Physician Consumer Insight Analyst 07/05/21 Stanley Heck MD #[address] [address] Consulting Physician Colon and Rectal Surgery 01/19/23 Zain Witt PAC [address] [place] [address] Physician Consumer Insight Analyst Physician Consumer Insight Analyst 07/31/24 Juan Manuel Gongora MD #[address] [place] [address] Consulting Physician Neurology 09/16/24 documented as of this encounter
--- OUTSIDE RECORDS SUMMARY | 2024-10-29 15:25 | XMS_ITS | Encounter Summary ---
Author Organization [facility] Address [address] [place] [address] Phone Care Team Providers Care Drum Printer Name Role Phone Cindy Pittman PAC Unavailable [phone] Stanley Hekc MD Unavailable Juan Agarwal MD Primary Care Provider [phone] Zain Witt PAC Unavailable [phone] Juan Manuel Gongora MD Unavailable Encounter Details Date Type Department Care Team (Late st Contact Info) Description 06/19/2024 Lab Requisition [facility] [address] [place] [address] Lanie May, KNIT TUBING DYER, MEDICAL SECRETARY TEACHER [address] [place] [address] Social History Tobacco Use Types Packs/Day Years Used Date Smoking Tobacco: Never Smokeless Tobacco: Never Alcohol Use Standard Drinks/Week Comments No 0 (1 standard drink = 0.6 oz pur e alcohol) PHQ-2 Answer Date Recorded Total Score - Questions 1-9 0 09/14 Education Answer Date Recorded What is the highest level of school you have completed or the highest degree you have received? 12th grade 01/16/2023 Sexually Active Control Partners Comments Never Comments No Sex and Gender Information Value Date Recorded Sex Assigned at Not on file Legal Sex Female 12:01 AM CDT Gender Identity Not on file Sexual Orientation Not on file documented as of this encounter Plan of Treatment Upcoming Encounters Date Type Department Care Team (Late st Contact Info) Description 12/18/2024 8:00 AM CDT [facility] - [place] [address] [place] [address] Ita Botello, KNIT TUBING DYER, OIL BURNER [address] [place] [address] documented as of this encounter Procedures Procedure Name Priority Date/Time Associated Diagnosis Comments QUANTIFERON-TB GOLD PLUS Routine 06/19/2024 1:50 PM MOLDED GOODS INSPECTOR TRIMMER MMRV PANEL Routine 06/19/2024 1:50 PM MOLDED GOODS INSPECTOR TRIMMER MUMPS IGG Routine 06/19/2024 1:50 PM MOLDED GOODS INSPECTOR TRIMMER HERPES ZOSTER (VARICELLA) IGG Routine 06/19/2024 1:50 PM MOLDED GOODS INSPECTOR TRIMMER RUBEOLA (MEASLES) IGG Routine 06/19/2024 1:50 PM MOLDED GOODS INSPECTOR TRIMMER RUBELLA IMMUNITY IGG Routine 06/19/2024 1:50 PM MOLDED GOODS INSPECTOR TRIMMER HEPATITIS B SURFACE ANTIBODY (HBSAB) Routine 06/19/2024 1:50 PM MOLDED GOODS INSPECTOR TRIMMER documented in this encounter Results * QUANTIFERON-TB GOLD PLUS (06/19/2024 1:50 PM MOLDED GOODS INSPECTOR TRIMMER) NIL CONTROL 0.01 <8.01 IU/mL 06/22/2024 11:00 AM MOLDED GOODS INSPECTOR TRIMMER [facility] TB ANTIGEN 1 0.01 <0.35 IU/mL 06/22/2024 11:00 AM MOLDED GOODS INSPECTOR TRIMMER [facility] TB ANTIGEN 2 0.01 <0.35 IU/mL 06/22/2024 11:00 AM MOLDED GOODS INSPECTOR TRIMMER [facility] MITOGEN CONTROL 9.99 >0.49 IU/mL 06/22/20 24 11:00 AM [facility] INTEPRETATION TB NEGATIVE NEGATIVE, NEGATIVE (TB antigen response less than 25% of internal negative control value) 06/22/2024 11:00 AM [facility] Comment:No immune response t o Mycobacterium tuberculosis antigens was noted. M. tuberculosis infection unlikely. Blood No Phlebotomy Charged / Unknown 06/19/2024 1:50 PM MOLDED GOODS INSPECTOR TRIMMER 06/19/2024 3:28 PM MOLDED GOODS INSPECTOR TRIMMER Narrative [facility] - 06/22/2024 11:00 AM MOLDED GOODS INSPECTOR TRIMMER A POSITIVE QUANTIFERON-TB GOLD PLUS RESULT SHOULD NOT BE THE SOLE OR DEFINITIVE BASIS FOR DETERMINING INFECTION WITH M.TUBERCULOSIS. Diagnosing or excluding tuberculosis disease, and assessing the probability of LTBI, requires a combination of epidemiological, historical, medical and diagnostic findings (e.g., acid fast bacilli (AFB) smear and culture, chest xray) that should be taken into account when interpreting QFT-Plus results. Furthermore, the magnitude of the measured gamma interferon level cannot be correlated to stage or degree of infection, level of immune responsiveness, or likelihood for progression to active disease. The Nil control adjusts for background (e.g., elevated levels of circulating gamma interferon or presence of heterophile antibodies). The Mitogen control serves as an internal positive control and verifies each specimen tested can produce a gamma interferon response. Low mitogen may occur with insufficient lymphocytes, reduced lymphocyte activity due to improper specimen handling, filling/mixing of the mitogen tube, or inability of the patient's lymphocytes to generate gamma interferon. Infection with other Mycobacteria, including M. kansasii, M. szulgai, and M. marinum, may cause false positive results. A negative QuantiFERON-TB Gold Plus result does not preclude the possibility of M. tuberculosis infection or tuberculosis disease: false negative results can be due to incorrect blood sample collection/ improper handling of the specimen, stage of infection (e.g., specimen obtained prior to the development of cellular immune response), co-morbid conditions which affect immune function, or other individual immunological factors. The minimum number of lymphocytes required for a reliable test has not been established and may also be variable. Diagnostic testing for Mycobacterium tuberculosis using Interferon Gamma Release Assays should follow applicable published guidelines, including when testing in populations such as children, women, and HIV-infected or otherwise immunocompromised individuals. https://www.cdc.gov/tb/publications/guidelines/testing.htm us Duartee Deepali Behjoni KNIT TUBING DYER, MEDICAL SECRETARY TEACHER IMMUNOLOGY ORDERABL ES Final Result Performing Organization Address [facility] Co de Phone Number [facility] [address] [place] [address], [place] * HERPES ZOSTER (VARICELLA) IGG (06/19/2024 1:50 PM MOLDED GOODS INSPECTOR TRIMMER) VARICELLA ZOSTER IGG 1.6 >=1.1 AI 06/19/2024 10:55 PM MOLDED GOODS INSPECTOR TRIMMER [facility] Blood No Phlebotomy Charged / Unknown 06/19/2024 1:50 PM MOLDED GOODS INSPECTOR TRIMMER 06/19/2024 3:28 PM MOLDED GOODS INSPECTOR TRIMMER Narrative [facility] - 06/19/2024 10:55 PM MOLDED GOODS INSPECTOR TRIMMER <= 0.8 Negative. No detectable VZV IgG antibody. 0.9 - 1.0 Equivocal >=1.1 Positive Antibody testing was performed by multiplex flow immunoassay on the BioPlex platform. us Lanie Mya APRN, CNP IMMUNOLOGY ORDERABL ES Final Result Performing Organization Address [facility] de Phone Number [facility] [address] [place] [address], [place] * RUBEOLA (MEASLES) IGG (06/19/2024 1:50 PM MOLDED GOODS INSPECTOR TRIMMER) MEASLES AB IGG 3.9 >=1.1 AI 06/19/2024 10:55 PM MOLDED GOODS INSPECTOR TRIMMER [facility] Blood No Phlebotomy Charged / Unknown 06/19/2024 1:50 PM MOLDED GOODS INSPECTOR TRIMMER 06/19/2024 3:28 PM MOLDED GOODS INSPECTOR TRIMMER Narrative [facility] - 06/19/2024 10:55 PM MOLDED GOODS INSPECTOR TRIMMER <= 0.8 Negative. No detectable Measles IgG antibody. 0.9 - 1.0 Equivocal >=1.1 Positive Antibody testing was performed by multiplex flow immunoassay on the BioPlex platform. Lanie L Behrends KNIT TUBING DYER, MEDICAL SECRETARY TEACHER IMMUNOLOGY ORDERABL ES Final Result [facility] [address] [place] [address], [place] * RUBELLA IMMUNITY IGG (06/19/2024 1:50 PM MOLDED GOODS INSPECTOR TRIMMER) RUBELLA IMMUNITY Immune Immune, Invalid 06/19/2024 10:55 PM MOLDED GOODS INSPECTOR TRIMMER [facility] RUBELLA IGG QUANT 1.90 >=1.0 AI AI 06/19/2024 10:55 PM MOLDED GOODS INSPECTOR TRIMMER [facility] Blood No Phlebotomy Charged / Unknown 06/19/2024 1:50 PM MOLDED GOODS INSPECTOR TRIMMER 06/19/2024 3:28 PM MOLDED GOODS INSPECTOR TRIMMER Narrative [facility] - 06/19/2024 10:55 PM MOLDED GOODS INSPECTOR TRIMMER Antibody testing was performed by multiplex flow immunoassay on the BioPlex platform. us Lanie L Behrends KNIT TUBING DYER, MEDICAL SECRETARY TEACHER CHEMISTRY ORDERABLE S Final Result Performing Organization Address [facility] Co de Phone Number [facility] [address] [place] [address], [place] * MUMPS IGG (06/19/2024 1:50 PM MOLDED GOODS INSPECTOR TRIMMER) Mumps Ab IgG 2.5 >=1.1 AI 06/19/2024 10:55 PM MOLDED GOODS INSPECTOR TRIMMER [facility] Blood No Phlebotomy Charged / Unknown 06/19/2024 1:50 PM MOLDED GOODS INSPECTOR TRIMMER 06/19/2024 3:28 PM MOLDED GOODS INSPECTOR TRIMMER Narrative [facility] - 06/19/2024 10:55 PM MOLDED GOODS INSPECTOR TRIMMER <= 0.8 Negative. No detectable Mumps IgG antibody. 0.9 - 1.0 Equivocal >=1.1 Positive Antibody testing was performed by multiplex flow immunoassay on the BioPlex platform. us Lanie L Behrends KNIT TUBING DYER, MEDICAL SECRETARY TEACHER IMMUNOLOGY ORDERABL ES Final Result Performing Organization Address City/[facility]/ZIP Co de Phone Number [facility] [address] [place] [address], [place] * HEPATITIS B SURFACE ANTIBODY (HBSAB) (06/19/2024 1:50 PM MOLDED GOODS INSPECTOR TRIMMER) HEPATITIS B SURFACE ANTIBODY 604.03 mIU/mL 06/19/2024 9:49 PM MOLDED GOODS INSPECTOR TRIMMER [facility] Comment: Detected Range: >12.00 Individual is considered immune to HBV infection Blood No Phlebotomy Charged / Unknown 06/19/2024 1:50 PM MOLDED GOODS INSPECTOR TRIMMER 06/19/2024 3:28 PM MOLDED GOODS INSPECTOR TRIMMER us Lanie May KNIT TUBING DYER, MEDICAL SECRETARY TEACHER CHEMISTRY ORDERABLE S Final Result [facility] [address] [facility] [place] [address], documented in this encounter Visit Diagnoses Not on filedocumented in this encounter Additional Health Concerns Assessment Noted Time PHQ-9 Depression Total Score: 0 10/04/19 24 10:33 AM MOLDED GOODS INSPECTOR TRIMMER documented as of this encounter Care Teams Drum Printer Relationship Specialty Start Date End Date Juan Agarwal MD #[address] [address] PCP - General Family Medicine 05/17/23 Cindy Pittman PAC [address] [place] [address] Physician Apprentice Physician Apprentice 07/05/21 Stanley Heck MD #[address] [address] Consulting Physician Colon and Rectal Surgery 01/19/23 Zain Witt PAC #[address] [place] [address] Physician Apprentice Physician Apprentice 07/31/24 Juan Manuel Gongora MD [address] [place] [address] Consulting Physician Neurology 09/16/24 documented as of this encounter
--- OUTSIDE RECORDS SUMMARY | 2024-10-29 15:25 | XMS_ITS | Encounter Summary ---
Author Organization [facility] Address [address] [place] [address] Phone Care Team Providers Care Legal Document Assistant Name Role Phone Paty Angela MD Primary Care Provider [phone] Miranda Fagan MD Primary Care Provider Juan Agarwal MD Primary Care Provider [phone] Encounter Details Date Type Department Care Team (Late st Contact Info) Description 08/14/2017 Orders Only [facility] ProviderMary Jo MD [address] [place] [id number] Social History Tobacco Use Types Packs/Day Years Used Date Smoking Tobacco: Never Assessed Comments Unknown Sex and Gender Information Value Date Recorded Sex Assigned at Not on file Legal Sex Female 4:08 PM SACK CLEANER Gender Identity Female 12/12/2021 11:29 AM CDT Sexual Orientation Straight 12/12/2021 11 :29 AM CDT documented as of this encounter Plan of Treatment Not on file documented as of this encounter Procedures Procedure Name Priority Date/Time Associated Diagnosis Comments DISCHARGE LABORATORY CUMULATIVE REPORT 08/14/2017 12:00 AM SACK CLEANER documented in this encounter Results * DISCHARGE LABORATORY CUMULATIVE REPORT (08/14/2017 12:00 AM SACK CLEANER) Narrative 08/14/2017 12:00 AM SACK CLEANER Ordered by an unspecified provider. us Historical Provider LAB BLOOD ORDERABLES Bailee l Result documented in this encounter Visit Diagnoses Not on filedocumented in this encounter Additional Health Concerns Infection Onset Date Last Indicated Resolved Time COVID: Suspected 11/23/2020 11/23/2020 11/23/2020 2:10 PM CDT COVID: Suspected 11/23/2020 11/23/2020 11/24/2020 8:38 AM CDT COVID: Suspected 05/28/2023 05/28/2023 05/28/2023 4:01 PM CDT COVID: Suspected 10/22/2023 10/22/2023 10/22/2023 6:29 PM CDT documented as of this encounter Care Teams Legal Document Assistant Relationship Specialty Start Date End Date Paty Angela MD [address] [place] [address] PCP - General Pediatrics 07/17/17 08/02/21 Miranda Fagan MD [address] [place] [address] PCP - General 08/03/21 05/27/23 Juan Agarwal MD [address] [place] [address] PCP - General Family Medicine 05/28/23 documented as of this encounter
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
--- OUTSIDE RECORDS SUMMARY | 2024-10-29 15:25 | XMS_ITS | Encounter Summary ---
Author Organization [facility] Address [address] [place] [address] Phone Care Team Providers Care Multimedia Designer Name Role Phone Cindy Pittman PAC Unavailable Stanley Heck MD Unavailable Juan Agarwal MD Primary Care Provider [phone] Zain Witt PAC Unavailable [phone] Juan Manuel Gongora MD Unavailable Reason for Visit * Reason Comments Medication Refill Encounter Details Date Type Department Care Team (Late st Contact Info) Description 06/22/2024 Refill [facility] - [facility] [address] [place] [id number] Juan Agarwal MD [address] [address] Medication Refill Social History Tobacco Use Types Packs/Day Years [...] CDT Office Visit [facility] [address] [place] [address] Ita Botello, TREE AND SHRUB WORKER, PIT STEWARD [address] [place] [address] documented as of this encounter Visit Diagnoses Not on filedocumented in this encounter Additional Health Concerns Assessment Noted Time PHQ-9 Depression Total Score: 0 10/04/19 24 10:33 AM ROOFING SUPERINTENDENT documented as of this encounter Care Teams Multimedia Designer Relationship Specialty Start Date End Date Juan Agarwal MD [address] [address] PCP - General Family Medicine 05/17/23 Cindy Pittman PAC [address] [place] [address] Physician Warp Dyeing Vat Tender Physician Warp Dyeing Vat Tender 07/05/21 Stanley Heck MD [address] [address] Consulting Physician Colon and Rectal Surgery 01/19/23 Zain Witt PAC [address] [place] [address] Physician Warp Dyeing Vat Tender Physician Warp Dyeing Vat Tender 07/31/24 Juan Manuel Gongora MD [address] [place] [address] Consulting Physician Neurology 09/16/24 documented as of this encounter
--- OUTSIDE RECORDS SUMMARY | 2024-10-29 15:25 | XMS_ITS | Clinical Summary ---
Author Organization [facility] [address] Address [address] [place] [address] Phone Care Team Providers Care Barrel Liner Name Role Phone Juan Agarwal MD Primary Care Provider [phone] Allergies Active Allergy Reactions Criticality Noted Date [...] 14 suspect anovulatory cycles. 01-21-19 Alexandra Nance NP. Assessment & Plan (11/15/2023 10:24 AM CDT): She has been regular since iud removal until last month She was 2-3 weeks late She has had negative test Will follow. Myopia 08/15/2017 Overview (08/15/2017): [facility] Hypothyroidism 08/28/2016 Generalized anxiety disorder 07/05/2016 Oppositional defiant disorder 07/05/2016 Encounter for preconception consultation 013 Overview (01/10/2019): HCT 45% on 19. Eczema 09/04/2012 Overview (08/15/2017): Including eye lids [...] 11/14/2022 Assessment & Plan (09/06/2022 2:49 PM ENVELOPE PATTERNMAKER): She didn't get her beta done Some dysuria Mood is getting better. She is wanting iud. Discussed Mirena. Bleeding profile reviewed. Will arrange Assessment & Plan (07/28/2022 7:53 PM ENVELOPE PATTERNMAKER): From her history, I believe she has [...] Abdominal pain 07/22/2013 08/15/2018 Wheezing 12/21/2010 08/15/2018 Encounters Date Type Department Care Team Description 10/29/2024 10:49 AM CDT - 10/29/2024 1:22 PM CDT Emergency [facility] Emergency Department [address] [place] [address] Discharge Disposition: Left without being seen from Last 3 Months Immunizations Immunization Administration Dates Next Due DTaP [...] 7-Valent 05/27/20 04,05/22/2003,03/27/2003,01/23 Tdap 03/13/2014 Varicella 09/11/2007,12/04/2003 Surgical History Surgery Date Site/Laterality Comments COLONOSCOPY 06/02/2022 WNL Medical History Medical History Date Comments Depression 2017 Concussion 2017 with LOC; hocky Hand fracture, right 12/03/2017 5th metacar pal; Dr. Almanzar Chronic abdominal pain Family history of Crohn's disease 11/03/2022 Family History Medical History Relation Name Comments ADD / ADHD Brother 1 Sammy ADD / ADHD Brother 2 Rip Migraines Brother 2 Rip Crohn's disease Father with ankylos ing spondylitis & arthritis Hypertension Father Nephrolithiasis Father Obesity Father's Sister Stroke Father's Sister Age 37! Heart disease Maternal Grandfather Kidney cancer Maternal Grandfather Heart attack Other 1 PGr Uncles Before age 50! Hypertension Other 2 Sudden Other 3 None before age 50 Diabetes type II Paternal Grandfather Heart failure Paternal Grandfather Seizures Paternal Grandfather Migraines Paternal Grandmother Cancer Neg Hx no colon, breas t or nurse obgyn cancer cmt 11/15/23 Relation Name Status Comments Brother 1 Sammy Brother 2 Rip Father Father's Sister Maternal Grandfather Other 1 PGr Uncles Alive Other 2 Other 3 Paternal Grandfather Paternal Grandmother Social History Tobacco Use Types Packs/Day Years [...] on file Legal Sex Female 4:08 PM ENVELOPE PATTERNMAKER Gender Identity Female 12/12/2021 11:29 AM CDT Sexual Orientation Straight 12/12/2021 11 :29 AM CDT Obstetrics History Para Term AB IAB SAB Ectopic Multiple Livin g Live Births 1 0 0 0 0 0 0 0 0 0 0 Date Outcome GA Total Labor Labor/2nd/3rd Weight Sex Type Anes PTL Sharee A1 A5 Name Clin Last Filed Vital Signs Vital Sign Reading [...] 05/07/2024 3:09 PM CDT Plan of Treatment Health Maintenance Due Date Last Done Comments Cervical Cancer Screening 2002 Hepatitis C Screening 2002 Pneumococcal vaccine <65 (1 of 1 - PPSV23) 2008 05/27/2004, 05/22/2003, 03/27/2003, Additional history exists Meningococcal B Vaccine (1 o f 2 - Standard) 2018 Covid-19 Vaccine (3 - 2023-2 5 season) 2024 08/23/2021, 06/25/2021 Chlamydia and Gonorrhea (GC/ CT) Screening 10/21/2024 10/22/2023, 08/22/2023, 03/07/2022, Additional history exists Depression Screening 11/14/2024 11/15/2023 Regular Well Visit/Exam 18-64 11/14/2024 11/15/2023, 06/10/2021 DTaP/Tdap/Td Vaccine (8 - Td or Tdap) 03/07/2027 03/07/2017, 03/13/2014, 09/11/2007, Additional history exists Varicella Vaccines Completed 09/11/2007, 12/04/2003 HPV Vaccines Completed 12/12/2017, 09/2017, 03/13/2014 Meningococcal Vaccine Completed 05/03/2020 , 03/07/2017, 03/13/2014 Hepatitis B Screening Completed 06/26/2021 , 02/24/2021, 02/24/2021, Additional history exists Influenza Vaccine Completed 05/13/2024, , 07/02/2020, Additional history exists Procedures Procedure Name Priority Date/Time Associated Diagnosis [...] of Race in Diagnosing Kidney Disease, JASN 202). The CKD-EPI equation should not be used for patients with unstable renal function and has not been validated in children and those over 70. Current interpretive data was last reviewed 2021. Blood 10/29/2024 11:2 8 AM CDT 10/29/2024 11:31 AM CDT us Jose Stevens MD LAB BLOOD ORDERABLES Final Res ult [facility] [place]) [facility] [place] [address] 86 * Differential, auto (10/29/2024 11:28 AM CDT) Neutrophil abs 3.1 1.5 - 6.5 K/cumm Imm gran abs 0.0 0.0 - 0.1 K/cumm [facility] ([place]) Lymphocyte abs 1.8 0.8 - 3.3 K/cumm [facility] ([place]) Monocyte abs 0.4 0.2 - 0.8 K/cumm [facility] ([place]) Eosinophil abs 0.1 0.0 - 0.5 K/cumm [facility] ([place]) Basophil abs 0.1 0.0 - 0.1 K/cumm [facility] ([place]) Neutrophil pct 56.2 % [facility] ([place]) Comment: Interpretive Data Percent cell count reference ranges are not reported, since discordance with absolute values may lead to misinterpretation of CBC data. Current Interpretive Data was last revised on 2017. Imm gran pct 0.2 % [facility] ([place]) Comment: Interpretive Data Percent cell count reference ranges are not reported, since discordance with absolute values may lead to misinterpretation of CBC data. Current Interpretive Data was last revised on 2017. Lymphocyte pct 31.8 % [facility] ([place]) Comment: Interpretive Data Percent cell count reference ranges are not reported, since discordance with absolute values may lead to misinterpretation of CBC data. Current Interpretive Data was last revised on 2017. Monocyte pct 8.0 % [facility] ([place]) Comment: Interpretive Data Percent cell count reference ranges are not reported, since discordance with absolute values may lead to misinterpretation of CBC data. Current Interpretive Data was last revised on 2017. Eosinophil pct 2.5 % [facility] ([place]) Comment: Interpretive Data Percent cell count reference ranges are not reported, since discordance with absolute values may lead to misinterpretation of CBC data. Current Interpretive Data was last revised on 2017. Basophil pct 1.3 % [facility] ([place]) Comment: Interpretive Data Percent cell count reference ranges are not reported, since discordance with absolute values may lead to misinterpretation of CBC data. Current Interpretive Data was last revised on 2017. Blood 10/29/2024 11:2 8 AM CDT 10/29/2024 11:31 AM CDT us Jose Stevens MD LAB BLOOD ORDERABLES Final Res ult [facility] ([place]) [address] [facility] [place] [place] [address] * CBC with auto differential (10/29/2024 11:28 [...] 11:28 AM CDT 10/29/2024 11:31 AM CDT us Jose Stevens MD LAB BLOOD ORDERABLES Final Res ult [facility] ([place]) 1 [facility] [place] [address] * Lipase (10/29/2024 11:28 AM CDT) Lipase 17 10 - 99 Units/L Blood Venous blood specimen / Unknown 10/29/2024 11:28 AM CDT 10/29/2024 11:31 AM CDT us Jose Stevens MD LAB BLOOD ORDERABLES Final Res ult [facility] ([place]) 1 [facility] [place] [address] * (ABNORMAL) Comprehensive metabolic panel (10/29/2024 11:28 [...] 8 AM CDT 10/29/2024 11:31 AM CDT Jose Stevens MD LAB BLOOD ORDERABLES Final Res ult [facility] ([place]) [address] [facility] [place] [place] [address] * N. gonorrhoeae/C. trachomatis Amplification Endocervical (10/22/2023 3:14 PM CDT) C. trachomatis Not Detected Not Detected N. gonorrhoeae Not Detected Not Detected [facility] ([place]) Comment: Interpretive Data This assay detects Chlamydia trachomatis and Neisseria gonorrhoeae by nucleic acid amplification testing (NAAT). This assay has been cleared by the [place] Food and Drug administration. The performance characteristics of this test have been verified by the [facility]. The performance characteristics of this test have not been evaluated in individuals less than 14 years of age. Current Interpretive Data last revised 2023. Endocervical (None) 10/22/19 3:14 PM CDT 10/22/2023 3:17 PM CDT us Bj Glez MD LAB MICROBIOLOGY - GENERAL O RDERABLES Final Result [facility] ([place]) [address] [facility] [place] [address] from Last 3 Months or Most Recently Relevant to Health Maintenance Insurance [facility] CHOICE OOS [facility] ACCESS CHOICE [facility] CHOICE PLUS Advance Directives For more information, please contact: [phone] * Full Code (Latest Code Status on File) Date Activated Date Inactivated Comments 06/02/2022 1:00 PM 06/02/2022 7:40 PM Care Teams Barrel Liner Relationship Specialty Start Date End Date Juan Agarwal MD [address] [facility] [address] PCP - General Family Medicine 05/28/23
--- OUTSIDE RECORDS SUMMARY | 2024-10-29 15:25 | XMS_ITS | Encounter Summary ---
Author Organization [facility] Address [address] [place] [address] Phone Care Team Providers Care Farm Mortgage Agent Name Role Phone Stanley Heck MD Unavailable uJan Agarwal MD Primary Care Provider [phone] Zain Witt PAC Unavailable [phone] Juan Manuel Gongora MD Unavailable [phone] Encounter Details Date Type Department Care Team (Late st Contact Info) Description 10/13/2024 Transcribe Orders [facility] Laboratory Services [address] [place] [address] Virgen Gusman MD [address] [address] Irregular menstrual cycle (Primary Dx) Social History Tobacco Use Types Packs/Day Years Used Date Smoking Tobacco: Never Smokeless Tobacco: Never Alcohol Use Standard Drinks/Week Comments No 0 (1 standard drink = 0.6 oz pur e alcohol) [facility] Utilities Answer Date Recorded In the past 12 months has [employer], gas, oil, or water [employer] threatened to shut off services in your home? Patient declined 09/10/2024 Social Connection and Isolation Panel [NHANES] A nswer Date Recorded In a typical week, how many times do you talk on the phone with family, friends, or neighbors? Patient declined 09/10/2024 How often do you get togethe r with friends or relatives? Patient declined 09/10/2024 How often do you attend gnosticist or restorationism serv ices? Patient declined 09/10/2024 Do you belong to any clubs o r organizations such as gnosticist groups, unions, fraternal or athletic groups, or [...] Recorded Total Score - Questions 1-9 0 /0 09/2023 [facility] - Occupational Stress [...] any time in the past 12 m [facility], were you homeless or living in a longterm (including now)? Patient declined 09/10/2024 Education Answer [...] Visit [facility] - Neurology [facility] [address] [place] [address] Ita Botello APRN, SUPERVISOR LACE TEARING [address] [place] [address] documented as of this encounter Results * INSULIN LEVEL (10/27/2024 11:48 AM CDT) INSULIN 4.6 3.0 - 28.0 uU/mL 10/28/2024 2:21 AM CDT [facility] Blood Venipuncture / Unknown 10/27/2024 11:48 AM CDT 10/27/2024 11:49 AM CDT us Virgen Gusman MD CHEMISTRY ORDERABLES F inal Result [facility] [address] [place] [address], documented in this encounter Visit Diagnoses Diagnosis Irregular menstrual cycle- Primary documented in this encounter Additional Health Concerns Assessment Noted Time PHQ-9 Depression Total Score: 0 07/14/20 24 4:39 PM ORTHODONTIST VICE PRESIDENT documented as of this encounter Care Teams Farm Mortgage Agent Relationship Specialty Start Date End Date Juan Agarwal MD [address]2 [facility] [address] [place] [address] PCP - General Family Medicine 05/17/23 Stanley Heck MD [address]2 [facility] [address] [place] [address] Consulting Physician Colon and Rectal Surgery 01/19/23 Zain Witt PAC [address] [place] [address] Physician Checker Physician Checker 07/31/24 Juan Manuel Gongora MD [address] [place] [id number] Consulting Physician Neurology 09/16/24 documented as of this encounter
--- OUTSIDE RECORDS SUMMARY | 2024-10-29 15:25 | XMS_ITS | Continuity of Care Document ---
Author Name [facility] Organization [facility] Care Team Providers Care Brim Pouncing Machine Operator Name Role Phone [facility] Unavailable Unavailable Medications Combined list of outpatient medications from Department of Defense and Veterans Affairs facilities.Medications provided include 1) outpatient medications from the last 15 months, and 2) patient-reported medications. Medication Details Route Status Patient Instructions Prescription Expires Prescription Number Last Dispense Date Ordering Provider Order Date Order Qty Source Multivitami ns with Folic Acid 0.8 mg oral tablet Multivit amins with Folic Acid 0.8 mg oral tablet Start Date: 02/18/21 Status: Ordered Repeat number: 1 Ordered 2021 No Facilit y Access Immunizations Combined list of available immunizations from the Department of Defense and Veterans Affairs facilities. Immunization Series Date Given Administered By Site Reaction Lot Number CVX Code Drug Commissary Worker Status Comments Source hepatitis B adult vaccine 2020 UNK 43 Unknown complet ed hepatitis B adult vaccine 06/26/21 Given Ambulat ory Pharmac y hepatitis B adult vaccine 2020 zzRig ht Arm [id number] GlaxoSmithKli ne complet ed hepatitis B adult vaccine 02/24/21 Given Ambulat ory Pharmac y influenza, injectable, quadrivalent- pf 2019 UNK 150 Unknown complet ed influenza , injectabl e, quadrival ent-pf 07/02/20 Given Ambulat ory Pharmac y adenovirus vaccine, live 2019 zzLef t Arm [id number] 143 Teva Pharmaceutica ls complet ed adenoviru s vaccine, live 02/18/20 Given Ambulat ory Pharmac y hepatitis B pediatric/ado lescent 2019 zzRig ht Arm [id number] GlaxoSmithKli ne complet ed hepatitis B pediatric /adolesce nt 02/18/20 Given Ambulat ory Pharmac y poliovirus vaccine, inactivated 2019 zzRig ht Arm [id number] sanofi pasteur complet ed polioviru s vaccine, inactivat ed 02/18/20 Given Ambulat ory Pharmac y meningococcal oligosacchari de (MCV4O) 2016 Body, whole TRANSCR IBED 136 complet ed meningoco ccal oligosacc haride (MCV4O) 03/07/17 Given Ambulat ory Pharmac y tetanus, diphtheria, acellular pertu is 2016 Body, whole TRANSCR IBED 115 complet ed tetanus, diphtheri a, acellular pertussis 03/07/17 Given Ambulat ory Pharmac y Procedures Combined list of: 1) Procedures from Department of Veterans Affairs facilities [facility], not all [place] non-surgical procedures are included; 2) All procedures from the Department of Defense facilities. Procedure Procedure Type Code Date Perfomer Comments Sourc e No data available for this section Ambulatory P harmacy Assessment and Plan Combined list of future care activities from Department of Defense and Veterans Affairs facilities (e.g., assessment and plan notes, appointments, orders, and referrals). Additional future care activities may be listed in the Plan of Care section. Result Assessment and Plan Date Source Assessment and Plan No data available for this section 10/29/2024 Ambulatory Pharmacy Functional Status Combined list of recent functional and cognitive assessments recorded at Department of Defense and Veterans Affairs ([place]).VA Functional [place] Measurement (FIM) Scale: 1 = Total Assistance (Subject = 0% +), 2 = Maximal Assistance (Subject = 25% +), 3 = Moderate Assistance (Subject = 50% +), 4 = Minimal Assistance (Subject = 75% +), 5 = Supervision, 6 = Modified Sebree (Device), 7 = Complete Sebree (Timely, Safely). Assessment Date/Time Source Assessment Type Assessment Skill Assessment Score Assessment Details No data available for this section
--- OUTSIDE RECORDS SUMMARY | 2024-10-29 15:25 | XMS_ITS | Clinical Summary ---
Author Organization [facility] Address [address] [place] [address] Care Team Providers Care Ladler Name Role Phone Gabriel Macdonald MD Primary Care Provider [phone] Allergies No known active allergies Medications omeprazole (PRILOSEC) 10 mg Capsule, Delayed Release(E.C.)In dications:GERD Take 40 mg by mouth daily after breakfast . Active escitalopram oxalate (LEXAPRO) 20 mg tabletIndicatio ns:depression Take 20 mg by mouth daily after breakfast . Active levothyroxine 100 mcg tabletIndicatio ns:thyroid deficience Take 75 mcg by mouth daily after breakfast . Active cholecalciferol , Vitamin D3, (VITAMIN D3) 1,000 unit CapsuleIndicati ons:vitamin deficiency Take 1,000 Units by mouth daily after breakfast. 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, without psychotic features 08/27/2016 Family History Medical History Relation Name Comments Depression Mother Relation Name Status Comments Brother 1 Omkar Alive Brother 2 Rip Alive Father Alive Mother Alive Social History Tobacco Use Types Packs/Day Years Used Date Smoking Tobacco: Never Alcohol Use Standard Drinks/Week Comments No 0 (1 standard drink = 0.6 oz pur e alcohol) Comments No Sex and Gender Information Value Date Recorded Sex Assigned at Not on file Legal Sex Female 3:53 PM KIER PLEATER Gender Identity Not on file Sexual Orientation Not on file Last Filed Vital Signs Vital Sign Reading Time Taken Comments Blood Pressure 121/71 09/01/2016 8:14 AM KIER PLEATER Pulse 81 09/01/2016 8:14 AM KIER PLEATER Temperature 36.6 C (97.8 F) 09/01/2016 8:14 AM KIER PLEATER Respiratory Rate 16 09/01/2016 8:14 AM KIER PLEATER Oxygen Saturation 100% 09/01/2016 8:14 AM KIER PLEATER Inhaled Oxygen Concentration - - Weight 87.1 kg (192 lb) 08/27/2016 5:22 PM KIER PLEATER Height 177 cm (5' 9.69 ) 08/27/2016 5:22 PM KIER PLEATER Body Mass Index 27.8 08/27/2016 5:22 PM KIER PLEATER Plan of Treatment Health Maintenance Due Date Last Done Comments CHLAMYDIA SCREENING (ANNUAL) 11-24 YEARS 2013 CERVICAL CANCER SCREENING 11/20/2023 DTAP/TDAP/TD VACCINES (7 - T d or Tdap) 03/13/2024 03/13/2014, 09/11/2007, 05/27/2004, Additional history exists INFLUENZA VACCINE (#1) 2024 05/13/2009 HEPATITIS B VACCINES Completed 05/22/2003, 2002, 2002 HPV VACCINES Completed 12/12/2017, 09/2017, 03/13/2014 Advance Directives For more information, please contact: [phone] * Full Code (Latest Code Status on File) Date Activated Date Inactivated Comments 08/27/2016 7:21 PM 09/01/2016 5:05 PM Care Teams Ladler Relationship Specialty Start Date End Date Gabriel Macdonald MD PCP - General Family Practice 12/08/15
--- OUTSIDE RECORDS SUMMARY | 2024-10-29 15:25 | XMS_ITS | Clinical Summary ---
Author Organization [facility] Address [address] [facility] [place] [address] Care Team Providers Care Pin Machine Tender Name Role Phone Dave Post MD Primary Care Provider Source Comments [facility],non-owned Affiliates and Associated Physician Practices is amultiple site organization consisting of ambulatory clinics and hospital sitesin [place], [place], [place] and [place]. This disclosure is being madepursuant to the Care Everywhere program and may not contain all information available regarding this patient. Last updated 18.[facility] Allergies No known active allergies Medications * Be aware that medications may not be up to date on this document. Alwaysverify current medications with the patient. Medication Sig Dispensed Refills Start Date End Date Status omeprazole EC (PRILOSEC OTC) 20 MG tablet Take 20 mg by mouth daily before breakfast. Active Family History Medical History Relation Name Comments Migraine Brother Crohn's Disease Father dad has few cousins with Crohn's disease GERD - Gastroesophageal Refl ux Disease Mother Migraine Paternal Grandmother Relation Name Status Comments Brother Father Mother Paternal Grandmother Social History Tobacco Use Types Packs/Day Years Used Date Smoking Tobacco: Never Alcohol Use Standard Drinks/Week Comments Not Asked 0 (1 standard drink = 0.6 oz pur e alcohol) Sex and Gender Information Value Date Recorded Sex Assigned at Not on file Gender Identity Not on file Sexual Orientation Not on file Last Filed Vital Signs Vital Sign Reading Time Taken Comments Blood Pressure 115/76 09/08/2014 2:07 PM LOOM DOFFER Pulse - - Temperature - - Respiratory Rate - - Oxygen Saturation - - Inhaled Oxygen Concentration - - Weight 64 kg (141 lb 3.2 oz) 09/08/2014 2:07 PM LOOM DOFFER Height 163.5 cm (5' 4.37 ) 09/08/2014 2:07 PM CS T Body Mass Index 23.96 09/08/2014 2:07 PM LOOM DOFFER Plan of Treatment Health Maintenance Due Date Last Done Comments PAP SMEAR 2002 HIV SCREENING 2017 HPV VACCINE (1 - 3-dose series) 2017 CHLAMYDIA/GONORRHEA SCREENING 2018 MENINGOCOCCAL (Group B) VACC INE SHARED DECISION-MAKING (1 of 2 - Standard) 2018 HEPATITIS C SCREENING 11/14/2020 DTAP/TDAP/TD VACCINES (1 - Tdap) 2021 HEPATITIS B VACCINE (1 of 3 - 19+ 3-dose series) 2021 COVID-19 VACCINE (1 - 2023-2 5 season) 2024 INFLUENZA VACCINE (#1) 2024 DEPRESSION SCREENING 08/13/2024 ZOSTER VACCINE (1 of 2) 2052 HIB VACCINE Aged Out No longer eligi ble based on patient's age to complete this topic MENINGOCOCCAL GROUPS A/C/Y/W VACCINE Aged Out No longer eligible b ased on patient's age to complete this topic PNEUMOCOCCAL VACCINE Aged Out No long er eligible based on patient's age to complete this topic Care Teams Pin Machine Tender Relationship Specialty Start Date End Date Dave Post MD [address] [place] [address] PCP - General Pediatrics 05/27/14
--- OUTSIDE RECORDS SUMMARY | 2024-10-29 15:25 | XMS_ITS | Encounter Summary ---
Author Organization [facility] Address [address] [place] [address] Phone Care Team Providers Care Publications Editor Name Role Phone Cindy Pittman PAC Unavailable [phone] Stanley Heck MD Unavailable Juan Agarwal MD Primary Care Provider Zain Witt PAC Unavailable [phone] Juan Manuel Gongora MD Unavailable [phone] Reason for Visit * Reason Comments Medication Refill Encounter Details Date Type Department Care Team (Late st Contact Info) Description 01/21/2024 Refill [facility] - Family Medicine [facility] [address] [place] [id number] Cindy Pittman, PAC [address] [place] [address] Medication Refill Social History Tobacco Use Types [...] encounter Miscellaneous Notes * Telephone Encounter - Edda Sousa RN - 01/22/2024 7:58 AM CDT Medication failed the protocol, provider to review and approve the medication order if appropriate. Requested Prescriptions Pending Prescriptions Disp Refills ondansetron (ZOFRAN-ODT) 4 MG TABLET DISPERSIBLE [Pharmacy Med Name: ONDANSETRON ODT 4MG TABLETS] 10 Tablet 0 Sig: DISSOLVE ONE TABLET BY MOUTH EVERY 8 HOURS NEEDED FOR NAUSEA Not Delegated - 5-HT3 Antagonists Protocol Failed - 01/21/2024 8:15 PM Failed - This refill cannot be delegated Passed - Visit with relevant provider in past 12 months or upcoming 90 days Recent Visits Date Type Provider Dept 10/04/23 Office Visit Cindy Pittman PAC [facility] 06/08/23 Office Visit Luba Brito APRN, FILLING CARRIER [facility] 04/30/23 Office Visit Juan Agarwal MD [facility] 03/19/23 Office Visit Juan Agarwal MD [facility] 02/20/23 Office Visit Miranda Fagan MD [facility] Showing recent visits within past 365 days and meeting all other requirements Future Appointments No visits were found meeting these conditions. Showing future appointments within next 90 days and meeting all other requirements documented in this encounter Plan of Treatment Upcoming Encounters Date Type Department Care Team (Late st Contact Info) Description 12/18/2024 8:00 AM CDT Office Visit [facility] - Neurology - [place] [address] [place] [address] Ita Botello APRN, VALVE SEATER OPERATOR [address] [place] [address] documented as of this encounter Visit Diagnoses Not on filedocumented in this encounter Additional Health Concerns Assessment Noted Time PHQ-9 Depression Total Score: 0 10/04/19 10:33 AM TELEPHONE ENGINEER documented as of this encounter Care Teams Publications Editor Relationship Specialty Start Date End Date Juan Agarwal MD #2 [facility] [address] [place] [address] PCP - General Family Medicine 05/17/23 Cindy Pittman, PAC [address] [place] [address] Physician Rock Duster Physician Rock Duster 07/05/21 Stanley Heck MD #2 [facility] [address] [place] [address] Consulting Physician Colon and Rectal Surgery 01/19/23 Zain Witt PAC [address] [place] [address] Physician Rock Duster Physician Rock Duster 07/31/24 Juan Manuel Gongora MD [address] [place] [address] Consulting Physician Neurology 09/16/24 documented as of this encounter
--- OUTSIDE RECORDS SUMMARY | 2024-10-29 15:25 | XMS_ITS | Encounter Summary ---
Author Organization [facility] Address [address] [place] [address] Care Team Providers Care Senior Software Quality Engineer Name Role Phone Juan Agarwal MD Primary Care Provider [phone] Reason for Visit * Reason Comments Abdominal Pain Encounter Details Date Type Department Care Team (Late st Contact Info) Description 10/29/2024 10:49 AM CDT - 10/29/2024 1:22 PM CDT Emergency [facility] [address] [place] [address] Discharge Disposition: Left without being seen Social History Tobacco Use Types Packs/Day Years Used Date Smoking Tobacco: Every Day Vaping Started: 2019 Smokeless Tobacco: Never Alcohol Use Standard Drinks/Week Comments Never 0 [...] on file Legal Sex Female 4:08 PM HEALTH INFORMATICS ADVISOR Gender Identity Female 12/12/2021 11:29 AM CDT Sexual Orientation Straight 12/12/2021 11 :29 AM CDT documented as of this encounter Last Filed Vital Signs Vital Sign Reading Time Taken Comments Blood Pressure 145/88 10/29/2024 11:17 AM CDT Pulse 79 10/29/2024 11:17 AM CDT Temperature 36.9 C (98.4 F) 10/29/2024 11:17 AM CDT Respiratory Rate 18 10/29/2024 11:17 AM CDT Oxygen Saturation 100% 10/29/2024 11:17 AM CDT Inhaled Oxygen Concentration - - Weight 107 kg (236 lb) 10/29/2024 11:17 AM CDT Height - - Body Mass Index 32.01 05/07/2024 3:09 PM CDT documented in this encounter Medications at Time of Discharge acetaminophen (TYLENOL) 500 mg tablet Take 1-2 tablets (500-1,000 mg total) by mouth every 6 (six) hours as needed for pain (1 tablet for mild to moderate pain. 2 tablets for severe pain) 30 tablet 03/07/2022 albuterol HFA (ProAir HFA) 90 mcg/actuation inhalerIndications: Shortness of breath Inhale 2 puffs every 4 (four) hours as needed for shortness of breath 1 each 05/07/2024 albuterol HFA (PROVENTIL HFA,VENTOLIN HFA,PROAIR HFA) 90 mcg/actuation inhaler Inhale 2 puffs every 4 (four) hours as needed for wheezing 8.5 g 10/22/2023 benzonatate (TESSALON) 100 mg capsuleIndications: Cough Take 1 capsule (100 mg total) by mouth every 8 (eight) hours 21 capsule 05/28/2023 cyclobenzaprine (FLEXERIL) 5 mg tablet TAKE 1 TO 2 TABLETS BY MOUTH EVERY NIGHT FOR MUSCLE CRAMPS 05/09/[address] (VOLTAREN) 75 mg EC tablet 05/09/2023 ergocalciferol (VITAMIN D) 50,000 unit capsule Take 1.25 mg by mouth once a week 04/16/2023 ibuprofen (ADVIL,MOTRIN) 600 mg tablet Take 1 tablet (600 mg total) by mouth every 6 (six) hours as needed for pain nicotine polacrilex (NICORETTE) 2 mg gumIndications:Toba account executive healthcare use Chew 1 each (2 mg total) as needed for smoking cessation 100 each 3 11/15/2023 omeprazole (PriLOSEC) 40 mg capsule TAKE 1 CAPSULE BY MOUTH DAILY TO PREVENT NSAID SIDE EFFECTS 05/09/2023 ondansetron ODT (ZOFRAN-ODT) 4 mg disintegrating tablet Take 1 tablet (4 mg total) by mouth every 8 (eight) hours as needed for nausea 20 tablet 02/19/2023 phenazopyridine (PYRIDIUM) 200 mg tablet Take 1 tablet (200 mg total) by mouth 3 (three) times a day as needed for bladder spasms 10 tablet 08/24/2023 predniSONE (DELTASONE) 5 mg tablet TAKE 1 TO 3 TABLETS BY MOUTH DAILY NEEDED FOR IMMEDIATE ARTHRITIS RELIEF Simponi 50 mg/0.5 mL pen injector 05/01/2024 sulfaSALAzine EN (AZULFIDINE EN) 500 mg EC tablet TAKE 1 TO 2 TABLETS BY MOUTH TWICE DAILY 05/14/2023 traMADoL (ULTRAM) 50 mg tablet Take 1 tablet (50 mg total) by mouth daily as needed 03/19/2023 triamcinolone (KENALOG) 0.1 % ointmentIndications :Eczema, unspecified type Apply topically 2 (two) times a day as needed for irritation or rash 15 g 08/27/2022 documented as of this encounter Discharge Disposition Disposition Code Departure Means Destination Left without being seen documented in this encounter ED Notes * Chevy Clarke RN - 10/29/2024 11:15 AM CDT Pt to ED via POV. Per Pt she has had RLQ worsening over the last 2 days. [facility]. Pt reports nausea. documented in this encounter Plan of Treatment Scheduled Orders Name Type Priority Associated Diagnoses Order Schedule Urinalysis reflex to microscopic and culture Urine Microbiology STAT STAT for 1 Occurrences starting 10/29/2024 until 10/29/2024 POCT hCG, urine Point of Care Testing Routine STAT for 1 Occurrences starting 10/29/2024 until 10/29/2024 documented as of this encounter Procedures Procedure Name Priority Date/Time Associated Diagnosis Comments EGFR STAT 10/29/2024 11:28 AM CDT DIFFERENTIAL AUTO STAT 10/29/2024 11: 28 AM CDT CBC WITH AUTO DIFFERENTIAL STAT 10/29/2024 11:28 AM CDT LIPASE STAT 10/29/2024 11:28 AM CDT COMPREHENSIVE METABOLIC PANEL STAT 10/29/2024 11:28 AM CDT documented in this encounter Results * eGFR (10/29/2024 11:28 AM CDT) [...] MD LAB BLOOD ORDERABLES Final Res ult [facility] 1 [facility] [place] [address] * Differential, auto (10/29/2024 11:28 AM CDT) [...] LAB BLOOD ORDERABLES Final Res ult [facility] ([place]) 1 [facility] [place] [address] * Lipase (10/29/2024 11:28 AM CDT) Lipase 17 10 - 99 Units/L Blood Venous blood specimen / Unknown 10/29/2024 11:28 AM CDT 10/29/2024 11:31 AM CDT Jose Stevens MD LAB BLOOD ORDERABLES Final Res ult [facility] ([place]) 1 [facility] [place] [address] * (ABNORMAL) Comprehensive metabolic panel (10/29/2024 11:28 [...] Final Res ult [facility] ([place]) 1 [facility] [place] [address] * CBC with auto differential (10/29/2024 11:28 [...] RDW SD 37.2 35.7 - 48.1 fL [facility] ([place]) NRBC abs 0.00 0.00 - 0.01 K/cumm [facility] ([place]) Blood Venous blood specimen / Unknown 10/29/2024 11:28 AM CDT 10/29/2024 11:31 AM CDT us Jose Stevens MD LAB BLOOD ORDERABLES Final Res ult [facility] ([place]) 1 [facility] [place] [address] documented in this encounter Visit Diagnoses Not on filedocumented in this encounter Orders Nursing Count Last Ordered Date First Orde red Date MISCELLANEOUS NURSING CARE ORDER (SPECIFY) 1 10/29/2024 IV Count Last Ordered Date First Orde red Date SALINE LOCK IV 1 10/29/2024 documented in this encounter Care Teams Senior Software Quality Engineer Relationship Specialty Start Date End Date [facility]wal [facility] [address] PCP - General Family Medicine 05/28/23 documented as of this encounter
--- NOTE | 2024-10-29 16:25 | ED_ITS ---
HPI - Abdominal Pain General Chief Complaint: Abdominal Pain Stated Complaint: RLQ pain Time Seen by Provider: 10/29/24 16:25 Focused HPI: Patient is a 23-year-old female who presents the ED with report of right lower quadrant abdominal pain. GENERAL: Well-appearing, well-nourished, and in no acute distress. HEAD: Normocephalic, atraumatic. CHEST: Clear to auscultation. ?No respiratory distress. HEART: Regular rate and rhythm.? NEURO: ?Alert and oriented x3. Patient screened in triage and initial orders placed.? ?Additional care and disposition to be based upon?diagnostic testing and treatment. Related Data Home Medications ?Medication ?Instructions ?Recorded ?Confirmed ?Last Taken ?Type No Home Medications 06/24/22 06/24/22 Unknown History Allergies Allergy/AdvReac Type Severity Reaction Status Date / Time No Known Allergies Allergy Verified 06/24/22 13:12 [facility]LY [facility], [facility] Past Medical History Medical History Patient denies medical problems Course Vital Signs Vital signs: Vital Signs Temperature 97.9 F 10/29/24 13:52 Pulse Rate 91 10/29/24 13:52 Respiratory Rate 16 10/29/24 13:52 Blood Pressure 154/76 H 10/29/24 13:52 Pulse Oximetry 100 10/29/24 13:52 Oxygen Delivery Room Air 10/29/24 13:52 Temperature 97.9 F 10/29/24 13:52 Pulse Rate 91 10/29/24 13:52 Respiratory Rate 16 10/29/24 13:52 Blood Pressure 154/76 H 10/29/24 13:52 Pulse Oximetry 100 10/29/24 13:52 Oxygen Delivery Room Air 10/29/24 13:52 Discharge Plan Discharge Instructions: Antibiotic Form Patient Language: Belarusian Prescriptions: No Action No Home Medications Follow-up/Referrals: Henna,PHAM Schofield [Primary Care Provider] -
--- OUTSIDE RECORDS SUMMARY | 2024-10-29 17:18 | XMS_ITS | Referral Summary ---
Author Organization [facility] [address] Address [address] [place] [address] Phone Care Team Providers Care Cloth Sander Name Role Phone Juan Agarwal MD Primary Care Provider [phone] Encounters Date Type Department Care Team Description 10/29/2024 10:49 AM CDT - 10/29/2024 1:22 PM CDT Emergency [facility] Emergency Department [address] [place] [address] Discharge Disposition: Left without being [...] 14 suspect anovulatory cycles. 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 Assessment & Plan (11/15/2023 10:24 AM CDT): She has been regular since iud removal until last month She was 2-3 weeks late She has had negative test Will follow. Myopia 08/15/2017 Overview (08/15/2017): [facility] Hypothyroidism 08/28/2016 Generalized anxiety disorder 07/05/2016 [...] 11/14/2022 Assessment & Plan (09/06/2022 2:49 PM SHEET METAL PRODUCTION WORKER): She didn't get her beta done Some dysuria Mood is getting better. She is wanting iud. Discussed Mirena. Bleeding profile reviewed. Will arrange Assessment & Plan (07/28/2022 7:53 PM SHEET METAL PRODUCTION WORKER): From her history, I believe she has [...] on file Legal Sex Female 4:08 PM SHEET METAL PRODUCTION WORKER Gender Identity Female 12/12/2021 11:29 AM CDT [...] ORDERABLES Final Res ult [facility] ([place]) 1 [facility] Department [place] [address] * Differential, auto (10/29/2024 11:28 AM CDT) [...] Final Res ult [facility] ([place]) 1 [facility] Department [place] [address] * CBC with auto differential (10/29/2024 11:28 [...] 81.8 81.3 - 96.4 fL [facility] ([place]) MCH 27.1 27.1 - 33.3 pg [facility]ERNER [...] Final Res ult [facility] ([place]) 1 [facility] [place] [address] * Lipase (10/29/2024 11:28 AM CDT) Pathologist [facility] Lipase 17 10 - 99 Units/L Blood Venous blood specimen / Unknown 10/29/2024 11:28 AM CDT 10/29/2024 11:31 AM CDT Jose Stevens MD LAB BLOOD ORDERABLES Final Res ult [facility] 1 [facility] [place] [address] * (ABNORMAL) Comprehensive metabolic panel (10/29/2024 11:28 [...] 0.73 0.60 - 1.10 mg/dL [facility] ([place]) Glucose 86 70 - 199 mg/dL [facility] [...] Final Res ult [facility] ([place]) 1 [facility] Department [place] [address] * N. gonorrhoeae/C. trachomatis Amplification Endocervical (10/22/2023 3:14 PM CDT) C. trachomatis Not Detected Not Detected N. gonorrhoeae Not Detected Not Detected [facility] ([place]) Comment: Interpretive Data This assay detects Chlamydia trachomatis and Neisseria gonorrhoeae by nucleic acid amplification testing (NAAT). This assay has been cleared by the [place] Food and Drug administration. The performance characteristics of this test have been verified by the [facility]. The performance characteristics of this test have not been evaluated in individuals less than 14 years of age. Current Interpretive Data last revised 2023. Endocervical (None) 10/22/19 24 3:14 PM CDT 10/22/2023 3:17 PM CDT Bj Glez MD LAB MICROBIOLOGY - GENERAL O RDERABLES Final Result [facility] ([place]) 1 [place] [address] from Last 3 Months or Most Recently Relevant to Health Maintenance Insurance BLUE ACC CHOICE [facility] ACCESS CHOICE [facility] CHOICE PLUS Advance Directives For more information, please contact: [phone] * Full Code (Latest Code Status on File) Date Activated Date Inactivated Comments 06/02/2022 1:00 PM 06/02/2022 7:40 PM Care Teams Cloth Sander Relationship Specialty Start Date End Date Juan Agarwal MD 2 [facility] [address] [address] PCP - General Family Medicine 05/28/23
--- OUTSIDE RECORDS SUMMARY | 2024-10-29 17:19 | XMS_ITS | Encounter Summary ---
Author Organization [facility] Address [address] [place] [address] Phone Care Team Providers Care Ambulatory Care Coordinator Name Role Phone Cindy Pittman PAC Unavailable Stanley Heck MD Unavailable Juan Agarwal MD Primary Care Provider Zain Witt PAC Unavailable [phone] Juan Manuel Gongora MD Unavailable Reason for Visit * Reason Comments Medication Refill Encounter Details Date Type Department Care Team (Late st Contact Info) Description 01/21/2024 Refill [facility] - Family Medicine [facility] [address] [place] [id number] Cindy Pittman, PAC [address] [place] [address] Medication Refill Social History Tobacco Use Types [...] Hospital 06/08/23 Office Visit Luba Brito APRN, BOTTLE ASSEMBLER [facility] 04/30[facility]23 Office Visit Juan Agarwal MD St. [...] Description 12/18/2024 8:00 AM CDT Office Visit [facility] - Neurology - [place] [address] [place] [address] Ita Botello APRN, BUFFERER [address] [place] [address] documented as of this encounter Visit Diagnoses Not on filedocumented in this encounter Additional Health Concerns Assessment Noted Time PHQ-9 Depression Total Score: 0 10/04/19 10:33 AM GASATERIA ATTENDANT documented as of this encounter Care Teams Ambulatory Care Coordinator Relationship Specialty Start Date End Date Juan Agarwal MD #2 [facility] [address] [place] [address] PCP - General Family Medicine 05/17/23 Cindy Pittman, PAC [address] [place] [address] Physician Media Marketing Coordinator Physician Media Marketing Coordinator 07/05/21 Stanley Heck MD #2 [facility] [address] [place] [address] Consulting Physician Colon and Rectal Surgery 01/19/23 Zain Witt PAC [address] [place] [address] Physician Media Marketing Coordinator Physician Media Marketing Coordinator 07/31/24 Juan Manuel Gongora MD #[address] [place] [address] Consulting Physician Neurology 09/16/24 documented as of this encounter
--- OUTSIDE RECORDS SUMMARY | 2024-10-29 17:19 | XMS_ITS | Clinical Summary ---
Author Organization [facility] Address [address] [place] [address] Phone Care Team Providers Care Singe Winder Name Role Phone Stanley Heck MD Unavailable Juan Agarwal MD Primary Care Provider [phone] Zain Witt PAC Unavailable [phone] Juan Manuel Gongora MD Unavailable [phone] Allergies Active Allergy Reactions Criticality Noted Date [...] 5 01/26/20 25 Active ergocalciferol (VITAMIN D) 15979 UNIT CapsuleIndicati ons:Vitamin D deficiency Take 1 [...] Team Description 10/27/2024 10:30 AM CDT Lab [facility] PHYSICIAN [facility] [address] [address] [place] [address] LabMaris Lab/Ancillary Discharge Disposition: Discharged to home or Selfcare 10/27/2024 10:00 AM CDT Office Visit [facility] [address] [place] [address] Juan Agarwal MD Depression, unspecified depression type (Primary Dx); Vitamin D deficiency; B12 deficiency; Insomnia, unspecified type Discharge Disposition: Discharged to home or Selfcare 10/27/2024 Travel 10/15/2024 Travel 10/13/2024 Transcribe Orders [facility] Laboratory Services [address] [place] [address] Virgen uGsman MD Irregular menstrual cycle (Primary Dx) 10/06/2024 Travel 09/27/2024 9:41 AM STEM MAKER - 09/27/2024 11:59 PM STEM MAKER Hospital Encounter [facility] CT 1 [facility] [place] [address] Elvira Charles, PHAM, LAMINATING MACHINE TENDER Discharge Disposition: Discharged to home or Selfcare 09/27/2024 Travel 09/24/2024 1:30 PM STEM MAKER Office Visit [facility] [address] [place] [address] Elvira Charles APRN, CRISTHIAN Neck pain (Primary Dx); Frequent headaches Discharge Disposition: Discharged to home or Selfcare 09/23/2024 10:20 AM STEM MAKER Clinical Support [facility] [address] [facility] [place] [address] [facility], Primary Nurse Clinic Sore throat (Primary Dx) Discharge Disposition: Discharged to home or Selfcare 09/22/2024 Travel 09/19/2024 Results Follow-Up [facility] [address] [place] [address] Melvin Elvira Triston, PHAM, LAMINATING MACHINE TENDER 09/16/2024 9:00 AM STEM MAKER [facility] [place] [facility] [place] [address] Melvin Elvira Triston, HOSPITAL PLAN ADMINISTRATOR, LAMINATING MACHINE TENDER Juan Manuel Gongora MD Chronic migraine w/o aura w/o status migrainosus, not intractable (Primary Dx); Ankylosing spondylitis of thoracolumbar region (HCC) Discharge Disposition: Discharged to home or Selfcare 09/16/2024 8:20 AM STEM MAKER Lab [facility] [address] [address] Lab Mar[facility] Lab/Ancillary Frequent headaches Discharge Disposition: Discharged to home or Selfcare 09/15/2024 11:45 AM STEM MAKER - 09/15/2024 11:59 PM STEM MAKER [facility] [address] [place] [address] Melvin, November Triston, HOSPITAL PLAN ADMINISTRATOR, LAMINATING MACHINE TENDER Discharge Disposition: Discharged to home or Selfcare 09/15/2024 Travel 09/10/2024 2:15 PM STEM MAKER Office Visit [facility] Family Medicine [facility] [address] [place] [address] Elvira Charles, HOSPITAL PLAN ADMINISTRATOR, LAMINATING MACHINE TENDER Frequent headaches (Primary Dx) Discharge Disposition: Discharged to home or Selfcare 09/10/2024 Travel 09/03/2024 10:40 AM STEM MAKER Immunization [facility] - [place] [address] [place] [address] [facility] [place], [facility] Nurse Clinic Chronic joint pain (Primary Dx) Discharge Disposition: Discharged to home or Selfcare 09/03/2024 Travel 09/03/2024 Telephone [facility] Family [facility] - [place] [address] [place] [address] Juan Agarwal MD 08/07/2024 Results Follow-Up [facility] Family Medicine - [place] [address] [facility] [place] [address] Juan Agarwal MD 08/05/2024 9:30 AM STEM MAKER Office Visit [facility] Orthopedic Surgery - [place] [address] [place] [address] Zain Witt, PAC Left arm pain; Left elbow pain Discharge Disposition: Discharged to home or Selfcare 08/05/2024 Travel from Last 3 Months Immunizations Immunization Administration Dates Next Due Adenovirus Vaccine 02/18/2020 Covid-19, Mrna, Lnp-s, Pf, 3 0 Mcg/0.3 Ml Dose (TVtrip) 06/25/2021 DTAP VACCINE 09/11/2007, 4,05/22/2003,03/27,01/23/2003 HEP B/HIB [...] Valent ,05/22/2003,03/27/2003,01/23 Pneumococcal conjugate PCV20 , polysaccharide THW038 conjugate, adjuvant, PF 07/09/2024 TDAP Vaccine 03/07/2017,03/13/2014 Varicella Vaccine Live 09/11/2007,12/04/2003 Family History Medical History Relation Name Comments Hypertension Father Yenifer Cancer Maternal Grandfather Anthony Kidney Carcinoma Congestive Heart Failure Maternal Grandfather Anthony Stroke Paternal Aunt Maddi Before the age of 50 Cancer Paternal Grandfather Gabriel Skin Ca ncer Diabetes Paternal Grandfather Gabriel Migraines Paternal Grandmother [place] Relation Name Status Comments Brother Alive Father Yenifer Alive Maternal Grandfather Anthony Mother Alive Paternal Aunt Maddi Paternal Grandfather Gabriel Paternal Grandmother [place] Social History Tobacco Use Types Packs/Day Years Used Date Smoking Tobacco: Never Smokeless Tobacco: Never Tobacco Cessation:Counseling Given: Yes Alcohol Use Standard Drinks/Week Comments No 0 (1 standard drink = 0.6 oz pur e alcohol) [facility] Answer Date Recorded In the past 12 months has [employer], oil, or water [employer] threatened to shut off services in your home? Patient declined 09/10/2024 Social Connection and Isolation Panel [NHANES] A nswer Date Recorded In a typical week, how many times do you talk on the phone with family, friends, or neighbors? Patient declined 09/10/2024 How often do you get togethe r with friends or relatives? Patient declined 09/10/2024 How often do you attend jew or druze serv ices? Patient declined 09/10/2024 Do you belong to any clubs o r organizations such as jew groups, unions, fraternal or athletic groups, or [...] Total Score - Questions 1-9 16 10/11 [facility] - Occupational Stress Questionnaire Answer Date Recorded [...] were you homeless or living in a care home (including now)? Patient declined 09/10/2024 Education Answer [...] CDT Respiratory Rate 17 09/24/2024 8:15 AM STEM MAKER Oxygen Saturation 99% 10/27/2024 8:56 AM CDT [...] [facility] [place] [address] [place] [address] Ita Botello, HOSPITAL PLAN ADMINISTRATOR, BEAUTY ADVISOR [address] [place] [address] Health Maintenance Due Date Last Done Comments [...] Irregular menstrual cycle TESTOSTERONE, TOTAL AND FREE, SOMIS TGRP Routine 10/06/2024 12:08 PM STEM MAKER Absence of menstruation Irregular menstrual cycle PROGESTERONE Routine 10/06/2024 12:08 PM STEM MAKER Absence of menstruation Irregular menstrual cycle FREE AND TOTAL TESTOSTERONE Routine 09/14 12:08 PM STEM MAKER Absence of menstruation Irregular menstrual cycle DEHYDROEPIANDROSTERONE SULFATE (DHEA-S) Routine 10/06/2024 12:08 PM STEM MAKER Absence of menstruation Irregular menstrual cycle PROGESTERONE Routine 10/06/2024 12:08 PM STEM MAKER Absence of menstruation Irregular menstrual cycle PROLACTIN Routine 10/06/2024 12:08 PM STEM MAKER Absence of menstruation Irregular menstrual cycle INSULIN LEVEL Routine 10/06/2024 12:08 PM STEM MAKER Absence of menstruation Irregular menstrual cycle HEMOGLOBIN A1C W/ ESTIMATED GLUCOSE Routine 10/06/2024 12:08 PM STEM MAKER Absence of menstruation Irregular menstrual cycle HCG BETA SUBUNIT SERUM QUANT Routine 12:08 PM STEM MAKER Absence of menstruation Irregular menstrual cycle CT HEAD OR BRAIN WO CONTRAST Routine 9:46 AM STEM MAKER Frequent headaches VITAMIN B12 Routine 09/16/2024 7:44 AM STEM MAKER Frequent headaches THYROID STIMULATING HORMONE (TSH) Routine 09/16/2024 7:44 AM STEM MAKER Frequent headaches XR CERVICAL SPINE MINIMUM 4 VIEWS (4 OR 5V) Routine 09/15/2024 12:06 PM STEM MAKER Frequent headaches HEPATITIS C ANTIBODY Routine 06/11/2023 4:42 PM CDT Concern about sexually transmitted disease in female without diagnosis from Last 3 Months or Most Recently Relevant to Health Maintenance Results * INSULIN LEVEL (10/27/2024 11:48 AM CDT) Only the most recent of2 resultswithin the time period is included. INSULIN 4.6 3.0 - 28.0 uU/mL 10/28/2024 2:21 AM CDT [facility] Blood Venipuncture / Unknown 10/27/2024 11:48 AM CDT 10/27/2024 11:49 AM CDT us Virgen Gusman MD CHEMISTRY ORDERABLES F inal Result [facility] [address] [place] [address], * HEMOGLOBIN A1C W/ ESTIMATED GLUCOSE (10/06/2024 12:08 PM STEM MAKER) HGB-A1C 5.1 4.0 - 6.0 % 10/06/2024 1:06 PM STEM MAKER [facility] Est Average Glucose 99.7 mg/dL 10/06/2024 1:06 PM STEM MAKER [facility] Blood Venipuncture / Unknown 10/06/2024 12:08 PM STEM MAKER 10/06/2024 12:27 PM STEM MAKER Narrative [facility] - 10/06/2024 1:06 PM STEM MAKER HEMOGLOBIN A1C: DIABETIC PATIENTS: WELL-CONTROLLED: 6.2 - 7.0 INTERMEDIATE WELL-CONTROLLED: 7.0 - 9.0 POORLY-CONTROLLED: >9.0 Specimens containing greater than 5% of Hemoglobin F may result in lower than expected % HbA1C results. Kanwalaldo Aguillon APRN, LAMINATING MACHINE TENDER CHEMISTRY ORDERABLES Fi nal Result Performing Organization Address City/[facility]/ZIP Co de Phone Number [facility] [address] [place] [address] * PROGESTERONE (10/06/2024 12:08 PM STEM MAKER) PROGESTERONE 0.7 ng/mL 10/06/2024 1:13 PM STEM MAKER [facility] Blood Venipuncture / Unknown 10/06/2024 12:08 PM STEM MAKER 10/06/2024 12:27 PM STEM MAKER Narrative [facility] - 10/06/2024 1:13 PM STEM MAKER FEMALE NORMAL RANGE <0.5 NG/ML FOLLICULAR 1.2-15.9 NG/ML LUTEAL <0.5 NG/ML POSTMENOPAUSAL MALE NORMAL RANGE <0.5 NG/ML Kanwalaldo Aguillon HOSPITAL PLAN ADMINISTRATOR, LAMINATING MACHINE TENDER CHEMISTRY ORDERABLES Fi nal Result Performing Organization Address City/[facility]/ZIP Co de Phone Number [facility] [address] [place] [address] * TESTOSTERONE, TOTAL AND FREE, BURGOS TGRP (10/06/2024 12:08 PM STEM MAKER) TESTOSTERONE, FREE 0.73 <0.13 - 1.08 ng/dL 10/13/2024 3:54 PM STEM MAKER [facility] Comment: ADDITIONAL INFORMATION This test was developed and its performance characteristics determined by [facility] in a manner consistent with CLIA requirements. This test has not been cleared or approved by the U.S. Food and Drug Administration. TESTOSTERONE, TOTAL 30 8 - 60 ng/dL 10/13/2024 3:54 PM STEM MAKER [facility] Comment: ADDITIONAL INFORMATION Testing performed by Liquid Chromatography-Tandem Mass Spectrometry (LC-MS/MS). This test was developed and its performance characteristics determined by [facility] in a manner consistent with CLIA requirements. This test has not been cleared or approved by the U.S. Food and Drug Administration. Test Performed by: [address] [address] Nursing Agency Manager: Ashley Butler Ph.D.; CLIA# [id number] Blood Venipuncture / Unknown 10/06/2024 12:08 PM STEM MAKER 10/06/2024 12:26 PM STEM MAKER Kanwal Aguillon APRN, CNP LAB SEND OUTS Final R esult Performing Organization Address City/[facility]/ZIP Co de Phone Number [facility] [place] * PROLACTIN (10/06/2024 12:08 PM STEM MAKER) [facility] Prolactin 19.4 1.2 - 29.9 ng/mL 10/06/2024 10:44 PM STEM MAKER [facility] Blood Venipuncture / Unknown 10/06/2024 12:08 PM STEM MAKER 10/06/2024 12:26 PM STEM MAKER Kanwal Aguillon APRN, CNP CHEMISTRY ORDERABLES Fi nal Result Performing Organization Address [facility] Co de Phone Number [facility] [address] [place] [address], [place] * HCG BETA SUBUNIT SERUM QUANT (10/06/2024 12:08 PM STEM MAKER) Pathologist [facility] HCG BETA SUBUNIT, QUANT <2.42 0.00 - 5.00 mIU/mL 10/06/2024 1:13 PM STEM MAKER [facility] Blood Venipuncture / Unknown 10/06/2024 12:08 PM STEM MAKER 10/06/2024 12:27 PM STEM MAKER Narrative [facility] - 10/06/2024 1:13 PM STEM MAKER HCG levels should be interpreted with consideration [...] with a urine hCG. Kanwal Aguillon APRN, LAMINATING MACHINE TENDER CHEMISTRY ORDERABLES Fi nal Result [facility] [address] [place] [address] * DEHYDROEPIANDROSTERONE SULFATE (DHEA-S) (10/06/2024 12:08 PM STEM MAKER) DHEA Sulfate 176 30 - 512 ug/dL 10/06/2024 10:52 PM STEM MAKER [facility] Blood Venipuncture / Unknown 10/06/2024 12:08 PM STEM MAKER 10/06/2024 12:27 PM STEM MAKER Kanwalaldo Aguillon HOSPITAL PLAN ADMINISTRATOR, LAMINATING MACHINE TENDER CHEMISTRY ORDERABLES Fi nal Result [facility] [address] [place] [address], [place] * CT HEAD OR BRAIN WO CONTRAST (09/27/2024 9:46 AM STEM MAKER) Anatomical Region Laterality Modality Head N/A Computed Tomogra phy 09/29/2024 10:3 6 AM STEM MAKER Impressions 09/29/2024 10:39 AM STEM MAKER IMPRESSION: 1. No acute intracranial process. 2. Paranasal sinus disease as above. Narrative 09/29/2024 10:39 AM STEM MAKER EXAM DESCRIPTION: CT HEAD WITHOUT CONTRAST REASON [...] Kieran Krishnan M.D. ÁNGEL: ÁNGEL Report ID: [id number] Reading Location: [id number] Procedure Note Kieran Krishnan MD - 09/29/2024 [...] Kieran Krishnan M.D. ÁNGEL: ÁNGEL Report ID: [id number] Reading Location: [id number] IMPRESSION: 1. No acute intracranial process. 2. Paranasal sinus disease as above. November N Melvin NATH CNP IMG CT ORDERABLES Final R esult * VITAMIN B12 (09/16/2024 7:44 AM STEM MAKER) VITAMIN B12 399 213 - 816 pg/mL 09/16/2024 1:18 PM STEM MAKER [facility] Blood Venipuncture / Unknown 09/16/2024 7:44 AM STEM MAKER 09/16/2024 7:44 AM STEM MAKER November Melvin NATH CNP CHEMISTRY ORDERABLES Bailee l Result [facility] [address] [place] [address] * THYROID STIMULATING HORMONE (TSH) (09/16/2024 7:44 AM STEM MAKER) TSH 1.406 0.300 - 5.000 mIU/L 09/16/2024 1:08 PM STEM MAKER [facility] Blood Venipuncture / Unknown 09/16/2024 7:44 AM STEM MAKER 09/16/2024 7:44 AM STEM MAKER us Elvira N Oehl HOSPITAL PLAN ADMINISTRATOR, LAMINATING MACHINE TENDER CHEMISTRY ORDERABLES Bailee l Result [facility] [address] [place] [address] * XR CERVICAL SPINE MINIMUM 4 VIEWS (4 OR 5V) (09/15/2024 12:06 PM STEM MAKER) Anatomical Region Laterality Modality Spine, C-spine N/A Digital Radiogra phy 09/15/2024 4:46 PM STEM MAKER Impressions 09/15/2024 4:49 PM STEM MAKER IMPRESSION: Reversal of the normal cervical lordosis. No significant osseous endplate degenerative changes. Narrative 09/15/2024 4:49 PM STEM MAKER EXAM DESCRIPTION: XR CERVICAL SPINE MINIMUM 4 [...] Michael Capone D.O. AP: AP Report ID: [id number] Reading Location: [id number] Procedure Note CaponeMichael mcdaniels DO - 09/15/2024 [...] Michael Capone D.O. AP: AP Report ID: [id number] Reading Location: [place] [address] IMPRESSION: Reversal of the normal cervical lordosis. No significant osseous endplate degenerative changes. November N Еленаhl HOSPITAL PLAN ADMINISTRATOR, LAMINATING MACHINE TENDER IMG DIAGNOSTIC ORDERABLES Final Result * HEPATITIS C ANTIBODY (06/11/2023 4:42 PM CDT) hepatitis C antibody 0.10 <1 S/CO [facility] ARCH [id number] B 06/12/2023 3:45 PM CDT [facility] Comment: Signal/Cutoff ratio < 0.79 is Nondetected Signal/Cutoff ratio 0.80-0.99 is Grayzone Signal/Cutoff ratio > 0.99 is Detected Supplemental assays are recommended if signal/cutoff ratio is >/=1.00. Signal/cutoff ratio result >/= 5.00 is 97% predictive of positivity for recombinant immunoblot assay (RIBA) and will be reported to the [place] Department of Public Health as required. Blood Venipuncture / Unknown 06/11/2023 4:42 PM CDT 06/11/2023 4:42 PM CDT Luba Brito HOSPITAL PLAN ADMINISTRATOR, LAMINATING MACHINE TENDER CHEMISTRY ORDERABLES Fin al Result [facility] [address] [place] [address], [place] from Last 3 Months or Most Recently Relevant to Health Maintenance Insurance [facility] Care Teams Singe Winder Relationship Specialty Start Date End Date Juan Agarwal MD [address]2 [facility] [address] [place] [address] PCP - General Family Medicine 05/17/23 Stanley Heck MD #2 [facility] [address] [place] [address] Consulting Physician Colon and Rectal Surgery 01/19/23 Zain Witt, PAC [address] [place] [address] Physician Program Management Intern Physician Program Management Intern 07/31/24 Juan Manuel Gongora MD [address] [place] [phone] Consulting Physician Neurology 09/16/24
--- OUTSIDE RECORDS SUMMARY | 2024-10-29 17:19 | XMS_ITS | Encounter Summary ---
Author Organization [facility] Address [address] [place] [address] Care Team Providers Care Senior Trial Attorney Name Role Phone Juan Agarwal MD Primary Care Provider [phone] Reason for Visit * Reason Comments Abdominal Pain Encounter Details Date Type Department Care Team (Late st Contact Info) Description 10/29/2024 10:49 AM CDT - 10/29/2024 1:22 PM CDT Emergency [facility] Emergency Department [address] [place] [address] Discharge Disposition: Left without being seen Social [...] on file Legal Sex Female 4:08 PM TEMPORARY OFFICE ASSISTANT Gender Identity Female 12/12/2021 11:29 AM CDT [...] pain nicotine polacrilex (NICORETTE) 2 mg gumIndications:Toba tobacco stripper hand use Chew 1 each (2 mg total) [...] 2 days. [facility]. Pt [...] MD LAB BLOOD ORDERABLES Final Res ult [facility] ([place] [address] [facility] Department [place] [address] * Differential, auto (10/29/2024 11:28 AM CDT) [...] LAB BLOOD ORDERABLES Final Res ult [facility] ([place]) [address] [facility] [email or web address] [address] * Lipase (10/29/2024 11:28 AM CDT) Lipase 17 10 - 99 Units/L Blood Venous blood specimen / Unknown 10/29/2024 11:28 AM CDT 10/29/2024 11:31 AM CDT Jose Stevens MD LAB BLOOD ORDERABLES Final Res ult [facility] ([place]) [address] [facility] [place] [address] * (ABNORMAL) Comprehensive metabolic panel (10/29/2024 11:28 [...] Final Res ult [facility] ([place]) [address] [facility] Department [place] [address] * CBC with auto differential (10/29/2024 11:28 [...] RDW SD 37.2 35.7 - 48.1 fL [facility] ([place]) NRBC abs 0.00 0.00 - 0.01 K/cumm [facility] ([place]) Blood Venous blood specimen / Unknown 10/29/2024 11:28 AM CDT 10/29/2024 11:31 AM CDT us Jose Stevens MD LAB BLOOD ORDERABLES Final Res ult [facility] ([place]) [address] [facility] Department [place] [address] documented in this encounter Visit Diagnoses Not on filedocumented in this encounter Orders Nursing Count Last Ordered Date First Orde red Date MISCELLANEOUS NURSING CARE ORDER (SPECIFY) 1 10/29/2024 IV Count Last Ordered Date First Orde red Date SALINE LOCK IV 1 10/29/2024 documented in this encounter Care Teams Senior Trial Attorney Relationship Specialty Start Date End Date Juan Agarwal [facility] [address] PCP - General Family Medicine 05/28/23 documented as of this encounter
--- OUTSIDE RECORDS SUMMARY | 2024-10-29 17:19 | XMS_ITS | Clinical Summary ---
Author Organization [facility] [address] Address [address] [place] [address] Phone Care Team Providers Care Print Production Associate Name Role Phone Juan Agarwal MD Primary Care Provider [phone] Allergies Active Allergy Reactions Criticality Noted Date [...] test Will follow. Myopia 08/15/2017 Overview (08/15/2017): [facility] Hypothyroidism 08/28/2016 Generalized anxiety disorder [...] 11/14/2022 Assessment & Plan (09/06/2022 2:49 PM VINE PRUNER): She didn't get her beta done Some dysuria Mood is getting better. She is wanting iud. Discussed Mirena. Bleeding profile reviewed. Will arrange Assessment & Plan (07/28/2022 7:53 PM VINE PRUNER): From her history, I believe she has [...] CDT - 10/29/2024 1:22 PM CDT Emergency [facility] Emergency Department [address] [place] [address] Discharge Disposition: Left without being seen from [...] Neg Hx no colon, breas t or cleaner and preparer cancer cmt 11/15/23 Relation Name Status Comments [...] on file Legal Sex Female 4:08 PM VINE PRUNER Gender Identity Female 12/12/2021 11:29 AM CDT [...] BLOOD ORDERABLES Final Res ult [facility] [place]) 1 [facility] [place] [address] 08 * Differential, auto (10/29/2024 11:28 AM CDT) Neutrophil abs 3.1 1.5 - 6.5 K/cumm Imm gran abs 0.0 0.0 - 0.1 K/cumm [facility] ([place]) Lymphocyte abs 1.8 0.8 - 3.3 K/cumm [facility]) Monocyte abs 0.4 0.2 - 0.8 K/cumm [facility] ([place]) Eosinophil abs 0.1 0.0 - 0.5 K/cumm [facility] ([place]) Basophil abs 0.1 0.0 - 0.1 K/cumm [facility] ([place]) Neutrophil pct 56.2 % [facility] ([place]) Comment: Interpretive Data Percent cell count reference ranges are not reported, since discordance with absolute values may lead to misinterpretation of CBC data. Current Interpretive Data was last revised on 2017. Imm gran pct 0.2 % [facility] ([place]) Comment: Interpretive Data Percent cell count reference ranges are not reported, since discordance with absolute values may lead to misinterpretation of CBC data. Current Interpretive Data was last revised on 2017. Lymphocyte pct 31.8 % [facility] ([place] Comment: Interpretive Data Percent cell count reference ranges are not reported, since discordance with absolute values may lead to misinterpretation of CBC data. Current Interpretive Data was last revised on 2017. Monocyte pct 8.0 % [facility] ([place]) Comment: Interpretive Data Percent cell count reference ranges are not reported, since discordance with absolute values may lead to misinterpretation of CBC data. Current Interpretive Data was last revised on 2017. Eosinophil pct 2.5 % [facility] Comment: Interpretive Data Percent cell count reference ranges are not reported, since discordance with absolute values may lead to misinterpretation of CBC data. Current Interpretive Data was last revised on 2017. Basophil pct 1.3 % [facility] ([place] Comment: Interpretive Data Percent cell count reference ranges are not reported, since discordance with absolute values may lead to misinterpretation of CBC data. Current Interpretive Data was last revised on 2017. Blood 10/29/2024 11:2 8 AM CDT 10/29/2024 11:31 AM CDT us Jose Stevens MD LAB BLOOD ORDERABLES Final Res ult [facility] ([place]) 1 [facility] [place] [address] * CBC with auto differential (10/29/2024 11:28 [...] Final Res ult [facility] ([place] 1 [facility] [place] [address] * Lipase (10/29/2024 11:28 AM CDT) Lipase 17 10 - 99 Units/L Blood Venous blood specimen / Unknown 10/29/2024 11:28 AM CDT 10/29/2024 11:31 AM CDT us Jose Stevens MD LAB BLOOD ORDERABLES Final Res ult [facility] ([place]) 1 [facility] Department [place] [address] * (ABNORMAL) Comprehensive metabolic panel (10/29/2024 11:28 [...] Final Res ult [facility] ([place] 1 [facility] [place] [address] * N. gonorrhoeae/C. trachomatis Amplification Endocervical (10/22/2023 [...] this test have been verified by the [facility]. The performance characteristics of this test have not been evaluated in individuals less than 14 years of age. Current Interpretive Data last revised 2023. Endocervical (None) 10/22/19 3:14 PM CDT 10/22/2023 3:17 PM CDT us Bj Glez MD LAB MICROBIOLOGY - GENERAL O RDERABLES Final Result [facility] ([place]) 1 [facility] [place] [address] from Last 3 Months or Most Recently Relevant to Health Maintenance Insurance [facility] CHOICE OOS [facility] ACCESS CHOICE [facility] CHO[facility]PPO Address: [place] [address] Advance Directives For more information, please contact: [phone] * Full Code (Latest Code Status on File) Date Activated Date Inactivated Comments 06/02/2022 1:00 PM 06/02/2022 7:40 PM Care Teams Print Production Associate Relationship Specialty Start Date End Date Juan Agarwal MD 2 [facility] [address] [address] PCP - General Family Medicine 05/28/23
--- OUTSIDE RECORDS SUMMARY | 2024-10-29 17:19 | XMS_ITS | Encounter Summary ---
Author Organization [facility] Address [address] [place] [address] Phone Care Team Providers Care Drill Setup Operator Name Role Phone Cindy Pittman PAC Unavailable Stanley Heck MD Unavailable Juan Agarwal MD Primary Care Provider Zain Witt PAC Unavailable [phone] Juan Manuel Gongora MD Unavailable [phone] Encounter Details Date Type Department Care Team (Late st Contact Info) Description 09/03/2024 Telephone [facility] - Family Medicine [facility] [address] [place] [address] Juan Agarwal MD [address] [address] Social History Tobacco Use Types Packs/Day Years Used Date Smoking Tobacco: Never Smokeless Tobacco: Never Alcohol Use Standard Drinks/Week Comments No 0 (1 standard drink = 0.6 oz pur e alcohol) [facility] Utilities Answer Date Recorded In the past [...] How often do you attend chur or zoroastrian services? More than 4 times per year 07/14/2024 Do you belong to any clubs o r organizations such as mosque groups, unions, fraternal or athletic groups, or [...] Total Score - Questions 1-9 0 09/2023 [facility] - Occupational [...] any time in the past 12 [facility], were you homeless or living in a custodial (including now)? No 07/14/2024 Education Answer Date [...] Shannan Valenzuela MA - 09/03/2024 9:18 AM SALES CONSULTANT INSURANCE Pt aware S CONSULTANT INSURANCE * Telephone Encounter - Juan Agarwal MD - 09/03/2024 9:06 AM SALES CONSULTANT INSURANCE Yes, that's fine, let's do a Toradol shot, but she would have to be seen in nurse clinic for this. Thanks! S CONSULTANT INSURANCE * Telephone Encounter - Mindi Serrano - 09/03/2024 8:29 AM CST Pt having increased back pain and is on a steroid pack from her newsagent. She isn't having any relief. Can we give her a toradol injection? Depo injection? Please advise and route message back to AUDREY CampbellSweta S CONSULTANT INSURANCE documented in this encounter Plan of Treatment Upcoming Encounters Date Type Department Care Team (Late st Contact Info) Description 12/18/2024 8:00 AM CDT Office Visit [facility] [address] [place] [address] Ita Botello, MANAGER PHILOSOPHY, DIRECTOR CENTER [address] [place] [address] documented as of this encounter Visit Diagnoses Not on filedocumented in this encounter Additional Health Concerns Assessment Noted Time PHQ-9 Depression Total Score: 0 07/14/20 24 4:39 PM SALES CONSULTANT INSURANCE documented as of this encounter Care Teams Drill Setup Operator Relationship Specialty Start Date End Date Juan Agarwal MD #[address] [address] PCP - General Family Medicine 05/17/23 Cindy Pittman PAC [address] [place] [address] Physician Data Center Architect Physician Data Center Architect 07/05/21 Stanley Heck MD #[address] [address] Consulting Physician Colon and Rectal Surgery 01/19/23 Zain Witt PAC [address] [place] [address] Physician Data Center Architect Physician Data Center Architect 07/31/24 Juan Manuel Gongora MD [address] [place] [address] Consulting Physician Neurology 09/16/24 documented as of this encounter
--- OUTSIDE RECORDS SUMMARY | 2024-10-29 17:19 | XMS_ITS | Continuity of Care Document ---
Author Name [facility] Organization [facility] Care Team Providers Care Bleacher Sulfite Pulp Name Role Phone [facility] Unavailable Unavailable Medications Combined list of outpatient [...] Site Reaction Lot Number CVX Code Drug Client Insights Consultant Status Comments Source hepatitis B adult vaccine 2020 UNK 43 Unknown complet ed hepatitis B adult vaccine 06/26/21 Given Ambulat ory Pharmac y hepatitis B adult vaccine 2020 zzRig ht Arm [id number] GlaxoSmithKli ne complet ed hepatitis B adult vaccine 02/24/21 Given Ambulat ory Pharmac y influenza, injectable, quadrivalent- pf 2019 UNK 150 Unknown complet ed influenza , injectabl e, quadrival ent-pf 07/02/20 Given Ambulat ory Pharmac y adenovirus vaccine, live 2019 zzLef t Arm [id number] Teva Pharmaceutica ls complet ed adenoviru s vaccine, live 02/18/20 Given Ambulat ory Pharmac y hepatitis B pediatric/ado lescent 2019 zzRig ht Arm [id number] GlaxoSmithKli ne complet ed hepatitis B pediatric /adolesce nt 02/18/20 Given Ambulat ory Pharmac y poliovirus vaccine, inactivated 2019 zzRig ht Arm [id number] sanofi pasteur complet ed polioviru s [...] [facility] facilities going [facility], not all [place] non-surgical procedures are included; 2) All procedures [...] at Department of Defense and Veterans Affairs ([place] Functional Finger Measurement (FIM) Scale: 1 = Total Assistance (Subject = 0% +), 2 = Maximal Assistance (Subject = 25% +), 3 = Moderate Assistance (Subject = 50% +), 4 = Minimal Assistance (Subject = 75% +), 5 = Supervision, 6 = Modified Finger (Device), 7 = Complete Finger (Timely, Safely). Assessment Date/Time Source Assessment Type Assessment Skill Assessment Score Assessment Details No data available for this section
--- OUTSIDE RECORDS SUMMARY | 2024-10-29 17:19 | XMS_ITS | Encounter Summary ---
Author Organization [facility] Address [address] [place] [address] Phone Care Team Providers Care Acoustic Intelligence Specialist Name Role Phone Paty Angela MD Primary Care Provider [phone] Miranda Fagan MD Primary Care Provider Juan Agarwal MD Primary Care Provider [phone] Encounter Details Date Type Department Care Team (Late st Contact Info) Description 08/14/2017 Orders Only [facility] ProviderMary Jo MD [address] [place] [address] Social History Tobacco Use Types Packs/Day Years Used Date Smoking Tobacco: Never Assessed Comments Unknown Sex and Gender Information Value Date Recorded Sex Assigned at Not on file Legal Sex Female 4:08 PM POCKET CREASER Gender Identity Female 12/12/2021 11:29 AM CDT Sexual Orientation Straight 12/12/2021 11 :29 AM CDT documented as of this encounter Plan of Treatment Not on file documented as of this encounter Procedures Procedure Name Priority Date/Time Associated Diagnosis Comments DISCHARGE LABORATORY CUMULATIVE REPORT 08/14/2017 12:00 AM POCKET CREASER documented in this encounter Results * DISCHARGE LABORATORY CUMULATIVE REPORT (08/14/2017 12:00 AM POCKET CREASER) Narrative 08/14/2017 12:00 AM POCKET CREASER Ordered by an unspecified provider. us Historical [...] documented as of this encounter Care Teams Acoustic Intelligence Specialist Relationship Specialty Start Date End Date Paty Angela MD [address] [place] [address] PCP - General Pediatrics 07/17/17 08/02/21 Miranda Fagan MD [address] [place] [address] PCP - General 08/03/21 05/27/23 Juan Agarwal MD [address] [place] [address] PCP - General Family Medicine 05/28/23 documented as of this encounter
--- OUTSIDE RECORDS SUMMARY | 2024-10-29 17:19 | XMS_ITS | Clinical Summary ---
Author Organization [facility] [address] Address [address] [place] [address] Care Team Providers Care Real Estate Rep Name Role Phone Gabriel Macdonald MD Primary Care Provider [phone] Allergies No known active allergies Medications omeprazole [...] on file Legal Sex Female 3:53 PM CORRECTIONAL COOK Gender Identity Not on file Sexual Orientation Not on file Last Filed Vital Signs Vital Sign Reading Time Taken Comments Blood Pressure 121/71 09/01/2016 8:14 AM CORRECTIONAL COOK Pulse 81 09/01/2016 8:14 AM CORRECTIONAL COOK Temperature 36.6 C (97.8 F) 09/01/2016 8:14 AM CORRECTIONAL COOK Respiratory Rate 16 09/01/2016 8:14 AM CORRECTIONAL COOK Oxygen Saturation 100% 09/01/2016 8:14 AM CORRECTIONAL COOK Inhaled Oxygen Concentration - - Weight 87.1 kg (192 lb) 08/27/2016 5:22 PM CORRECTIONAL COOK Height 177 cm (5' 9.69 ) 08/27/2016 5:22 PM CORRECTIONAL COOK Body Mass Index 27.8 08/27/2016 5:22 PM CORRECTIONAL COOK Plan of Treatment Health Maintenance Due Date Last Done Comments CHLAMYDIA SCREENING (ANNUAL) 11-24 YEARS 2013 PAP SMEAR 11/20/2023 DTAP/TDAP/TD VACCINES (7 - T d or Tdap) 03/13/2024 03/13/2014, 09/11/2007, 05/27/2004, Additional history exists INFLUENZA VACCINE (#1) 2024 05/13/2009 HEPATITIS B VACCINES Completed 05/22/2003, 2002, 2002 HPV VACCINES Completed 12/12/2017, 09/2017, 03/13/2014 Advance Directives For more information, please contact: [phone] * Full Code (Latest Code Status on File) Date Activated Date Inactivated Comments 08/27/2016 7:21 PM 09/01/2016 5:05 PM Care Teams Real Estate Rep Relationship Specialty Start Date End Date Gabriel Macdonald MD PCP - General Family Practice 12/08/15
--- OUTSIDE RECORDS SUMMARY | 2024-10-29 17:19 | XMS_ITS | Encounter Summary ---
Author Organization [facility] Address [address] [place] [address] Phone Care Team Providers Care Glazing Department Supervisor Name Role Phone Stanley Heck MD Unavailable Juan Agarwal MD Primary Care Provider [phone] Zain Witt PAC Unavailable [phone] Juan Manuel Gongora MD Unavailable [phone] Encounter Details Date Type Department Care Team (Late st Contact Info) Description 10/13/2024 Transcribe Orders [facility] Laboratory Services [address] [place] [address] Virgen Gusman MD [address] [address] Irregular menstrual cycle (Primary Dx) Social History Tobacco Use Types Packs/Day Years Used Date Smoking Tobacco: Never Smokeless Tobacco: Never Alcohol Use Standard Drinks/Week Comments No 0 (1 standard drink = 0.6 oz pur e alcohol) [facility] Utilities Answer Date Recorded In the past 12 months has [employer], gas, oil, or water [employer] threatened to shut off services in your home? Patient declined 09/10/2024 Social Connection and Isolation Panel [NHANES] A nswer Date Recorded In a typical week, how many times do you talk on the phone with family, friends, or neighbors? Patient declined 09/10/2024 How often do you get togethe r with friends or relatives? Patient declined 09/10/2024 How often do you attend synagogue or mormon serv ices? Patient declined 09/10/2024 Do you belong to any clubs o r organizations such as synagogue groups, unions, fraternal or athletic groups, or [...] Score - Questions 1-9 0 /0 09/2023 [facility] - Occupational [...] any time in the past [address] [facility], were you homeless or living in a intermediate (including now)? Patient declined 09/10/2024 Education Answer [...] Visit [facility] - [facility] [address] [place] [address] Ita Botello APRN, PARTY PLANNER [address] [place] [address] documented as of this encounter Results * INSULIN LEVEL (10/27/2024 11:48 AM CDT) INSULIN 4.6 3.0 - 28.0 uU/mL 10/28/2024 2:21 AM CDT [facility] Blood Venipuncture / Unknown 10/27/2024 11:48 AM CDT 10/27/2024 11:49 AM CDT us Virgen Gusman MD CHEMISTRY ORDERABLES F inal Result [facility] [address] [place] [address], documented in this encounter Visit Diagnoses Diagnosis Irregular menstrual cycle- Primary documented in this encounter Additional Health Concerns Assessment Noted Time PHQ-9 Depression Total Score: 0 07/14/20 24 4:39 PM FARM MORTGAGE AGENT documented as of this encounter Care Teams Glazing Department Supervisor Relationship Specialty Start Date End Date Juan Agarwal MD #2 [facility] [address] [place] [address] PCP - General Family Medicine 05/17/23 Stanley Heck MD #2 [facility] [address] [place] [address] Consulting Physician Colon and Rectal Surgery 01/19/23 Zain Witt PAC [address] [place] [address] Physician Marketing Production Coordinator Physician Marketing Production Coordinator 07/31/24 Juan Manuel Gongora MD [address] [place] [address] Consulting Physician Neurology 09/16/24 documented as of this encounter
--- OUTSIDE RECORDS SUMMARY | 2024-10-29 17:19 | XMS_ITS | Clinical Summary ---
Author Organization [facility] Address [address] [place] [address] Care Team Providers Care Commercial Or Institutional Cleaner Name Role Phone Dave Post MD Primary Care Provider [phone] Source Comments [facility],non-owned Affiliates and Associated Physician Practices is amultiple site organization consisting of ambulatory clinics and hospital sitesin [place], [place], [place] and [place]. This disclosure is being madepursuant to the Care Everywhere program and may not contain all information available regarding this patient. Last updated 18.[facility] Allergies No known active allergies Medications * [...] Comments Blood Pressure 115/76 09/08/2014 2:07 PM SUPERVISOR COKE HANDLING Pulse - - Temperature - - Respiratory Rate - - Oxygen Saturation - - Inhaled Oxygen Concentration - - Weight 64 kg (141 lb 3.2 oz) 09/08/2014 2:07 PM SUPERVISOR COKE HANDLING Height 163.5 cm (5' 4.37 ) 09/08/2014 2:07 PM CS T Body Mass Index 23.96 09/08/2014 2:07 PM SUPERVISOR COKE HANDLING Plan of Treatment Health Maintenance Due Date [...] age to complete this topic Care Teams Commercial Or Institutional Cleaner Relationship Specialty Start Date End Date Dave Post MD [address] [place] [address] PCP - General Pediatrics 05/27/14
--- OUTSIDE RECORDS SUMMARY | 2024-10-29 17:19 | XMS_ITS | Encounter Summary ---
Author Organization [facility] Address [address] [place] [address] Phone Care Team Providers Care Bar Manager Name Role Phone Cindy Pittman PAC Unavailable [phone] Stanley Heck MD Unavailable Juan Agarwal MD Primary Care Provider [phone] Zain Witt PAC Unavailable [phone] Juan Manuel Gongora MD Unavailable Encounter Details Date Type Department Care Team (Late st Contact Info) Description 06/19/2024 Lab Requisition [facility] Services [address] [place] [address] Lanie May, OPERATIONS SPECIALIST, PLUMBING WAREHOUSE HELPER [address] [place] [address] Social History Tobacco Use Types [...] Description 12/18/2024 8:00 AM CDT [facility] - [place] [address] [place] [address] Ita Botello, OPERATIONS SPECIALIST, PIPE AND TANK FABRICATOR [address] [place] [address] documented as of this encounter Procedures Procedure Name Priority Date/Time Associated Diagnosis Comments QUANTIFERON-TB GOLD PLUS Routine 06/19/2024 1:50 PM COMMERCIAL SOLAR SALES CONSULTANT MMRV PANEL Routine 06/19/2024 1:50 PM COMMERCIAL SOLAR SALES CONSULTANT MUMPS IGG Routine 06/19/2024 1:50 PM COMMERCIAL SOLAR SALES CONSULTANT HERPES ZOSTER (VARICELLA) IGG Routine 06/19/2024 1:50 PM COMMERCIAL SOLAR SALES CONSULTANT RUBEOLA (MEASLES) IGG Routine 06/19/2024 1:50 PM COMMERCIAL SOLAR SALES CONSULTANT RUBELLA IMMUNITY IGG Routine 06/19/2024 1:50 PM COMMERCIAL SOLAR SALES CONSULTANT HEPATITIS B SURFACE ANTIBODY (HBSAB) Routine 06/19/2024 1:50 PM COMMERCIAL SOLAR SALES CONSULTANT documented in this encounter Results * QUANTIFERON-TB GOLD PLUS (06/19/2024 1:50 PM COMMERCIAL SOLAR SALES CONSULTANT) NIL CONTROL 0.01 <8.01 IU/mL 06/22/2024 11:00 AM COMMERCIAL SOLAR SALES CONSULTANT [facility] TB ANTIGEN 1 0.01 <0.35 IU/mL 06/22/2024 11:00 AM COMMERCIAL SOLAR SALES CONSULTANT [facility] TB ANTIGEN 2 0.01 <0.35 IU/mL 06/22/2024 11:00 AM COMMERCIAL SOLAR SALES CONSULTANT [facility] MITOGEN CONTROL 9.99 >0.49 IU/mL 06/22/20 24 11:00 AM [facility] INTEPRETATION TB NEGATIVE NEGATIVE, NEGATIVE (TB antigen response less than 25% of internal negative control value) 06/22/2024 11:00 AM [facility] Comment:No immune response t o Mycobacterium tuberculosis antigens was noted. M. tuberculosis infection unlikely. Blood No Phlebotomy Charged / Unknown 06/19/2024 1:50 PM COMMERCIAL SOLAR SALES CONSULTANT 06/19/2024 3:28 PM COMMERCIAL SOLAR SALES CONSULTANT Narrative [facility] - 06/22/2024 11:00 AM COMMERCIAL SOLAR SALES CONSULTANT A POSITIVE QUANTIFERON-TB GOLD PLUS RESULT SHOULD [...] immunocompromised individuals. https://www.cdc.gov/tb/publications/guidelines/testing.htm us Duartee Deepali Behjoni OPERATIONS SPECIALIST, PLUMBING WAREHOUSE HELPER IMMUNOLOGY ORDERABL ES Final Result Performing Organization Address [facility] Co de Phone Number [facility] [address] [place] [address], [place] * HERPES ZOSTER (VARICELLA) IGG (06/19/2024 1:50 PM COMMERCIAL SOLAR SALES CONSULTANT) VARICELLA ZOSTER IGG 1.6 >=1.1 AI 06/19/2024 10:55 PM COMMERCIAL SOLAR SALES CONSULTANT [facility] Blood No Phlebotomy Charged / Unknown 06/19/2024 1:50 PM COMMERCIAL SOLAR SALES CONSULTANT 06/19/2024 3:28 PM COMMERCIAL SOLAR SALES CONSULTANT Narrative [facility] - 06/19/2024 10:55 PM COMMERCIAL SOLAR SALES CONSULTANT <= 0.8 Negative. No detectable VZV IgG antibody. 0.9 - 1.0 Equivocal >=1.1 Positive Antibody testing was performed by multiplex flow immunoassay on the BioPlex platform. us Lanie May APRN, CNP IMMUNOLOGY ORDERABL ES Final Result Performing Organization Address [facility] de Phone Number [facility] [address] [place] [address], [place] * RUBEOLA (MEASLES) IGG (06/19/2024 1:50 PM COMMERCIAL SOLAR SALES CONSULTANT) MEASLES AB IGG 3.9 >=1.1 AI 06/19/2024 10:55 PM COMMERCIAL SOLAR SALES CONSULTANT [facility] Blood No Phlebotomy Charged / Unknown 06/19/2024 1:50 PM COMMERCIAL SOLAR SALES CONSULTANT 06/19/2024 3:28 PM COMMERCIAL SOLAR SALES CONSULTANT Narrative [facility] - 06/19/2024 10:55 PM COMMERCIAL SOLAR SALES CONSULTANT <= 0.8 Negative. No detectable Measles IgG antibody. 0.9 - 1.0 Equivocal >=1.1 Positive Antibody testing was performed by multiplex flow immunoassay on the BioPlex platform. Lanie L Behrends OPERATIONS SPECIALIST, PLUMBING WAREHOUSE HELPER IMMUNOLOGY ORDERABL ES Final Result [facility] [address] [place] [address], [place] * RUBELLA IMMUNITY IGG (06/19/2024 1:50 PM COMMERCIAL SOLAR SALES CONSULTANT) RUBELLA IMMUNITY Immune Immune, Invalid 06/19/2024 10:55 PM COMMERCIAL SOLAR SALES CONSULTANT [facility] RUBELLA IGG QUANT 1.90 >=1.0 AI AI 06/19/2024 10:55 PM COMMERCIAL SOLAR SALES CONSULTANT [facility] Blood No Phlebotomy Charged / Unknown 06/19/2024 1:50 PM COMMERCIAL SOLAR SALES CONSULTANT 06/19/2024 3:28 PM COMMERCIAL SOLAR SALES CONSULTANT Narrative [facility] - 06/19/2024 10:55 PM COMMERCIAL SOLAR SALES CONSULTANT Antibody testing was performed by multiplex flow immunoassay on the BioPlex platform. us Lanie L Behrends OPERATIONS SPECIALIST, PLUMBING WAREHOUSE HELPER CHEMISTRY ORDERABLE S Final Result Performing Organization Address [facility] Co de Phone Number [facility] [address] [place] [address], [place] * MUMPS IGG (06/19/2024 1:50 PM COMMERCIAL SOLAR SALES CONSULTANT) Mumps Ab IgG 2.5 >=1.1 AI 06/19/2024 10:55 PM COMMERCIAL SOLAR SALES CONSULTANT [facility] Blood No Phlebotomy Charged / Unknown 06/19/2024 1:50 PM COMMERCIAL SOLAR SALES CONSULTANT 06/19/2024 3:28 PM COMMERCIAL SOLAR SALES CONSULTANT Narrative [facility] - 06/19/2024 10:55 PM COMMERCIAL SOLAR SALES CONSULTANT <= 0.8 Negative. No detectable Mumps IgG antibody. 0.9 - 1.0 Equivocal >=1.1 Positive Antibody testing was performed by multiplex flow immunoassay on the BioPlex platform. us Lanie L Behrends OPERATIONS SPECIALIST, PLUMBING WAREHOUSE HELPER IMMUNOLOGY ORDERABL ES Final Result Performing Organization Address City/[facility]/ZIP Co de Phone Number [facility] [address] [place] [address], [place] * HEPATITIS B SURFACE ANTIBODY (HBSAB) (06/19/2024 1:50 PM COMMERCIAL SOLAR SALES CONSULTANT) HEPATITIS B SURFACE ANTIBODY 604.03 mIU/mL 06/19/2024 9:49 PM COMMERCIAL SOLAR SALES CONSULTANT [facility] Comment: Detected Range: >12.00 Individual is considered immune to HBV infection Blood No Phlebotomy Charged / Unknown 06/19/2024 1:50 PM COMMERCIAL SOLAR SALES CONSULTANT 06/19/2024 3:28 PM COMMERCIAL SOLAR SALES CONSULTANT us Lanie May OPERATIONS SPECIALIST, PLUMBING WAREHOUSE HELPER CHEMISTRY ORDERABLE S Final Result [facility] [address] [facility] [place] [address], documented in this encounter Visit Diagnoses Not on filedocumented in this encounter Additional Health Concerns Assessment Noted Time PHQ-9 Depression Total Score: 0 10/04/19 24 10:33 AM COMMERCIAL SOLAR SALES CONSULTANT documented as of this encounter Care Teams Bar Manager Relationship Specialty Start Date End Date Juan Agarwal MD [address] [address] PCP - General Family Medicine 05/17/23 Cindy Pittman PAC [address] [place] [address] Physician Radio Frequency Engineer Physician Radio Frequency Engineer 07/05/21 Stanley Heck MD [address] [address] Consulting Physician Colon and Rectal Surgery 01/19/23 Zain Witt PAC [address] [place] [address] Physician Radio Frequency Engineer Physician Radio Frequency Engineer 07/31/24 Juan Manuel Gongora MD [address] [place] [address] Consulting Physician Neurology 09/16/24 documented as of this encounter
--- OUTSIDE RECORDS SUMMARY | 2024-10-29 17:19 | XMS_ITS | Encounter Summary ---
Author Organization [facility] Address [address] [place] [address] Phone Care Team Providers Care Prison Teacher Name Role Phone Cindy Pittman PAC Unavailable Stanely Heck MD Unavailable Juan Agarwal MD Primary Care Provider [phone] Zain Witt PAC Unavailable [phone] Juan Manuel Gongora MD Unavailable [phone] Reason for Visit * Reason Comments Medication Refill Encounter Details Date Type Department Care Team (Late st Contact Info) Description 06/22/2024 Refill [facility] - Family Medicine [facility] [address] [place] [id number] Juan Agarwal MD [address] [address] Medication Refill Social History Tobacco Use Types [...] CDT Office Visit [facility] [address] [place] [address] Ita Botello, SALES COUNSELOR, VACUUM CLEANER ASSEMBLER [address] [place] [address] documented as of this encounter Visit Diagnoses Not on filedocumented in this encounter Additional Health Concerns Assessment Noted Time PHQ-9 Depression Total Score: 0 10/04/19 24 10:33 AM COMMUNITY PLANNING TECHNICIAN documented as of this encounter Care Teams Prison Teacher Relationship Specialty Start Date End Date Juan Agarwal MD #[address] [address] PCP - General Family Medicine 05/17/23 Cindy Pittman PAC [address] [place] [address] Physician Veterinary Medicine Scientist Physician Veterinary Medicine Scientist 07/05/21 Stanley Hekc MD #[address] [address] Consulting Physician Colon and Rectal Surgery 01/19/23 Zain Witt PAC [address] [place] [address] Physician Veterinary Medicine Scientist Physician Veterinary Medicine Scientist 07/31/24 Juan Manuel Gongora MD [address] [place] [address] Consulting Physician Neurology 09/16/24 documented as of this encounter
== END 2024-10-29 18:15 | disposition left against medical advice (07) ==
LOC: ANHED 16:45
PROVIDERS: PCP Nurse Practitioner Women's Health
DX: R10.31 Right lower quadrant pain (principal)
CPT/HCPCS: 99199

== ENCOUNTER 2024-10-30 10:43 | Outpatient (CLI) | payer BC, SELFPAY ==
--- NOTE | ~2024-10-30 | US_ITS ---
Pelvic ultrasound. Clinical History: Right ovarian cyst COMPARISON: 10/17/2024 Technique: Realtime transabdominal and transvaginal scanning of the pelvis was performed. Color flow Doppler and Doppler spectral analysis were performed. Findings: The uterus is anteverted, and measures 8.1 x 3.4 x 4.4 cm. The endometrial stripe has a th ickness of 7 mm. No focal mass is identified. The right ovary measures 4.2 x 2.6 x 4.1 cm. No significant right ovarian or adnexal mass is seen. The left ovary measures 3.2 x 2.4 x 4.6 cm. No significant left ovarian or adnexal mass is seen. There is no evidence of free fluid in the cul de sac. Impression: Unremarkable pelvic ultrasound. No ovarian cyst identified currently. Reviewed, dictated and finalized at [facility]. Impression: Unremarkable pelvic ultrasound. No ovarian cyst identified currently.
== END 2024-10-30 10:44 | disposition home or self-care (01) ==
LOC: MICIMG 10:43
PROVIDERS: PCP Obstetrics & Gynecology Gynecology; Visit Provider Obstetrics & Gynecology Gynecology
DX: R10.2 Pelvic and perineal pain (principal); N83.201 Unspecified ovarian cyst, right side
CPT/HCPCS: 76830